=== PATIENT | female | born 1995 | race Caucasian/White ===

== ENCOUNTER 2019-09-26 06:18 | Emergency (ER) | payer SELFPAY ==
[2019-09-26 06:24] VITALS: BP 126/76; PULSE 90; RESP 16; TEMP 36.8; O2SAT 100; BMI 27.4
--- NOTE | 2019-09-26 06:28 | ED.ABDPAIN ---
HPI - Abdominal Pain <Leonardo Correia DO - Last Filed: 09/26/19 18:07> General Chief Complaint: Abdominal Pain Stated Complaint: ABDOMINAL PAIN Time Seen by Provider: 09/26/19 06:25 Source: patient and family Mode of arrival: Ambulatory Limitations: no limitations History of Present Illness HPI narrative: 24-year-old female nonsmoker with benign medical history presents with a chief complaint of sudden onset severe left lower quadrant pain that woke her from sleep almost 2 hours prior to her arrival. She admits to nausea and a few episodes of vomiting. She denies any provocation or palliation, she states it radiates to her back. She denies vaginal bleeding or discharge and states her last menstrual period was in and the August, it is not unheard of for her to go extended periods of time without a period. MD complaint: abdominal pain Onset (ago): hour(s) Pain Consistency: constant Location: LLQ Severity: moderate Quality: stabbing and aching Radiation: back Relieving factors: nothing Exacerbating factors: nothing Associated symptoms: nausea and vomiting Related Data Previous Rx's Medication Instructions Recorded norethindrone-e.estradiol-iron 1 tab PO QDAY #3 pac 05/07/17 [Loestrin Fe 1.5/30 (28-Day)] acyclovir [Zovirax] 200 mg PO Q4H #50 cap 10/13/17 cephalexin 500 mg PO TID #21 cap 10/14/17 ciprofloxacin HCl 500 mg PO BID #14 tab 09/26/19 tamsulosin [Flomax] 0.4 mg PO DAILY #5 cap 09/26/19 Allergies Allergy/AdvReac Type Severity Reaction Status Date / Time Sulfa (Sulfonamide Allergy Unknown Verified 09/26/19 06:37 Antibiotics) [SULFA (SULFONAMIDE ANTIBIOTICS)] Review of Systems <DO Mary Stokes Last Filed: 09/26/19 18:07> Constitutional Constitutional: Denies chills, Denies fatigue, Denies fever(s), Denies frequent falls, Denies lethargy and Denies weakness Eyes Eyes: Denies change in vision, Denies eye discharge, Denies irritation and Denies loss of vision ENT Ears, Nose, Mouth, and Throat: Denies change in voice, Denies dizziness, Denies neck pain, Denies sore throat and Denies throat swelling Cardiovascular Cardiovascular: Denies chest pain, Denies irregular heart rhythm, Denies lightheadedness, Denies palpitations, Denies dyspnea, Denies dyspnea on exertion and Denies orthopnea Respiratory Respiratory: Denies cough, Denies dyspnea, Denies dyspnea on exertion and Denies wheezing Gastrointestinal Gastrointestinal: Reports abdominal pain, Denies change in bowel habits, Denies diarrhea, Reports nausea and Reports vomiting Genitourinary Genitourinary: Denies hematuria, Denies flank pain, Denies urinary incontinence and Denies urinary urgency Musculoskeletal Musculoskeletal: Denies back pain, Denies muscle weakness, Denies neck pain, Denies numbness and Denies tingling Integumentary/Breasts Skin/Breast: Denies pruritus, Denies erythema, Denies rash and Denies wounds Neurologic Neurologic: Denies behavioral changes, Denies confusion, Denies dizziness, Denies frequent falls, Denies loss of vision, Denies numbness, Denies tingling and Denies weakness Psychiatric Psychiatric: Denies anxiety, Denies behavioral changes, Denies confusion, Denies depression, Denies homicidal ideation and Denies suicidal ideation Endocrine Endocrine: Denies fatigue, Denies flushing and Denies palpitations Hematologic/Lymphatic Hematologic/Lymphatic: Denies easy bruising Allergic/Immunologic Allergic/Immunologic: Denies urticaria, Denies throat swelling and Denies wheezing Patient History <Leonardo Correia DO - Last Filed: 09/26/19 18:07> Social History Smoking Status: Never smoker alcohol intake frequency: holidays/special occasions only Substance Use Type: marijuana Exam <Leonardo Correia DO - Last Filed: 09/26/19 18:07> Narrative Exam Narrative: GENERAL: [24] year old patient appears stated age. Well-nourished, well-developed patient, in moderate distress, obviously uncomfortable HEAD: Atraumatic. Normocephalic. EYES: Pupils equal round and reactive. Extraocular motions intact. No scleral icterus. No injection or drainage. ENT: Nose without bleeding, purulent drainage. Throat without erythema, tonsillar hypertrophy or exudate. Airway patent. NECK: Trachea midline. Non tender CARDIOVASCULAR: Regular rate and rhythm without murmurs, gallops, or rubs. RESPIRATORY: Clear to auscultation. Breath sounds equal bilaterally. No wheezes, rales, or rhonchi. GASTROINTESTINAL: Abdomen soft, non-tender, nondistended. EXTREMITIES: No edema or joint tenderness. BACK: Nontender without deformity or crepitance. No flank tenderness. NEURO: AOx3. SKIN: No rash or erythema of visible areas Initial Vital Signs Initial Vital Signs: Vital Signs Temperature 98.2 F 09/26/19 06:24 Pulse Rate 90 09/26/19 06:24 Respiratory Rate 16 09/26/19 06:24 Blood Pressure 126/76 09/26/19 06:24 Pulse Oximetry 100 09/26/19 06:24 <Gabriela Villafuerte, DO - Last Filed: 09/26/19 08:40> Initial Vital Signs Initial Vital Signs: Vital Signs Temperature 98.2 F 09/26/19 06:24 Pulse Rate 90 09/26/19 06:24 Respiratory Rate 16 09/26/19 06:24 Blood Pressure 126/76 09/26/19 06:24 Pulse Oximetry 100 09/26/19 06:24 Course <Leonardo Correia DO - Last Filed: 09/26/19 18:07> Course Course Narrative: patient initial evaluation and orders by myself, then signed out to Dr. Villafuerte for final disposition Orders Ordered: Discontinued Medications Hydrocodone Bitart/Acetaminophen (Vicodin Prepack) 1 bottle MISC SEEINSTR ONE Stop: 09/26/19 08:09 Last Admin: 09/26/19 08:17 Dose: 1 bottle Documented by: CARMELITA Ciprofloxacin (Cipro) 500 mg PO NOW ONE Stop: 09/26/19 08:09 Last Admin: 09/26/19 08:18 Dose: 500 mg Documented by: CARMELITA Sodium Chloride (Normal Saline 0.9%) 1,000 mls @ 150 mls/hr IV CONT TIMOTHY Last Admin: 09/26/19 06:43 Dose: Not Given Documented by: BABITA Sodium Chloride (Normal Saline 0.9%) 1,000 mls @ 1,000 mls/hr IV BOLUS ONE Stop: 09/26/19 07:36 Last Infusion: 09/26/19 08:01 Dose: 0 mls/hr Documented by: Admin: 09/26/19 06:45 Dose: 1,000 mls/hr Documented by: KWOYSKI Ketorolac Tromethamine (Toradol) 15 mg IV NOW ONE Stop: 09/26/19 06:38 Last Admin: 09/26/19 06:45 Dose: 15 mg Documented by: SHANNON Ondansetron HCl (Zofran) 4 mg IV Q4HR PRN PRN Reason: Nausea And Vomiting Last Admin: 09/26/19 06:45 Dose: 4 mg Documented by: SHANNON Vital Signs Vital signs: Vital Signs - 8 hr 09/26/19 06:24 09/26/19 06:38 09/26/19 08:23 Temperature 98.2 F Pulse Rate 90 85 75 Respiratory Rate 16 16 Blood Pressure 126/76 Blood Pressure [Right Arm] 126/76 118/58 L Pulse Oximetry 100 100 100 09/26/19 08:31 Temperature Pulse Rate 65 Respiratory Rate 16 Blood Pressure 118/58 L Blood Pressure [Right Arm] Pulse Oximetry 100 <Gabriela Villafuerte DO - Last Filed: 09/26/19 08:40> Orders Ordered: Discontinued Medications Hydrocodone Bitart/Acetaminophen (Vicodin Prepack) 1 bottle MISC SEEINSTR ONE Stop: 09/26/19 08:09 Last Admin: 09/26/19 08:17 Dose: 1 bottle Documented by: CARMELITA Ciprofloxacin (Cipro) 500 mg PO NOW ONE Stop: 09/26/19 08:09 Last Admin: 09/26/19 08:18 Dose: 500 mg Documented by: CARMELITA Sodium Chloride (Normal Saline 0.9%) 1,000 mls @ 150 mls/hr IV CONT TIMOTHY Last Admin: 09/26/19 06:43 Dose: Not Given Documented by: BABITA Sodium Chloride (Normal Saline 0.9%) 1,000 mls @ 1,000 mls/hr IV BOLUS ONE Stop: 09/26/19 07:36 Last Infusion: 09/26/19 08:01 Dose: 0 mls/hr Documented by: Admin: 09/26/19 06:45 Dose: 1,000 mls/hr Documented by: SHANNON Ketorolac Tromethamine (Toradol) 15 mg IV NOW ONE Stop: 09/26/19 06:38 Last Admin: 09/26/19 06:45 Dose: 15 mg Documented by: SHANNON Ondansetron HCl (Zofran) 4 mg IV Q4HR PRN PRN Reason: Nausea And Vomiting Last Admin: 09/26/19 06:45 Dose: 4 mg Documented by: SHANNON Vital Signs Vital signs: Vital Signs - 8 hr 09/26/19 06:24 09/26/19 06:38 09/26/19 08:23 Temperature 98.2 F Pulse Rate 90 85 75 Respiratory Rate 16 16 Blood Pressure 126/76 Blood Pressure [Right Arm] 126/76 118/58 L Pulse Oximetry 100 100 100 09/26/19 08:31 Temperature Pulse Rate 65 Respiratory Rate 16 Blood Pressure 118/58 L Blood Pressure [Right Arm] Pulse Oximetry 100 MDM - Abdominal Pain <Leonardo Correia DO - Last Filed: 09/26/19 18:07> Lab Data Result diagrams: 09/26/19 06:40 09/26/19 06:40 Labs: Lab Results 09/26/19 09/26/19 09/26/19 Range/Units 06:40 06:40 07:05 WBC 11.4 H (4.5-11.0) X10^3/uL RBC 4.52 (4.0-5.2) X10^6/uL Hgb 14.0 (12.0-16.0) g/dL Hct 40.2 (36-46) % MCV 89.0 (80-100) fL MCH 30.9 (26-34) PG MCHC 34.8 (30-36) % RDW 14.2 (11.6-14.8) % Plt Count 295 (150-400) X10^3/uL Neut % (Auto) 69.7 (50-75) % Lymph % (Auto) 22.4 L (25-40) % [place] % (Auto) 6.4 (3-14) % Eos % (Auto) 1.2 L (2-4) % Baso % (Auto) 0.3 (0-2) % Neut # (Auto) 8000 H (2664-0110) /uL Lymph # (Auto) 2600 (5943-5745) /uL [place] # (Auto) 700 (0-900) /uL Eos # (Auto) 100 (0-450) /uL Baso # (Auto) 0 (0-100) /uL Sodium 140 (137-145) mmol/L Potassium 3.7 (3.4-5.1) mmol/L Chloride 106 (98-107) mmol/L Carbon Dioxide 24 (22-32) mmol/L BUN 10 (7-17) mg/dL Creatinine 0.50 L (0.52-1.04) mg/dL Estimated GFR > 60.0 (>60) mL/min BUN/Creatinine Ratio 20.0 (6-22) Glucose 102 H (70-100) mg/dL Calcium 10.2 (8.4-10.2) mg/dL Total Bilirubin 0.4 (0.2-1.3) mg/dL AST 21 (14-36) IU/L ALT 11 (9-52) IU/L Alkaline Phosphatase 59 (38-126) U/L Total Protein 8.8 H (6.3-8.2) g/dL Albumin 4.8 (3.5-5.0) g/dL Globulin 4.0 (1.7-4.1) g/dL Albumin/Globulin Ratio 1.2 (1.0-2.8) Lipase 133 (23-300) U/L Urine RBC 30-100/hpf H (0-5/HPF) Urine WBC 10-30/hpf H (0-5/HPF) Ur Squamous Epith Cells 1-5 /hpf (0-5/HPF) Urine Bacteria Moderate (10-30) H (None) Ur Culture Indicated? Specimen cultured Point of care testing: Point of Care Testing Test Results Negative Urine Dip Bedside Urine Glucose Negative Bedside Urine Bilirubin - Negative Bedside Urine Ketone - Negative Urine Specific [place] 1.015 Bedside Urine Occult Blood +++ Bedside Urine pH 6.5 Bedside Urine Protein + 30 Bedside Urine Urobilinogen +/- 1mg Bedside Urine Nitrite - Negative Bedside Urine Leukocytes +/- 15 Esterase <Gabriela Villafuerte, DO - Last Filed: 09/26/19 08:40> Lab Data Attestation: I reviewed the patient's lab results. Labs: Lab Results 09/26/19 09/26/19 09/26/19 Range/Units 06:40 06:40 07:05 WBC 11.4 H (4.5-11.0) X10^3/uL RBC 4.52 (4.0-5.2) X10^6/uL Hgb 14.0 (12.0-16.0) g/dL Hct 40.2 (36-46) % MCV 89.0 (80-100) fL MCH 30.9 (26-34) PG MCHC 34.8 (30-36) % RDW 14.2 (11.6-14.8) % Plt Count 295 (150-400) X10^3/uL Neut % (Auto) 69.7 (50-75) % Lymph % (Auto) 22.4 L (25-40) % [place] % (Auto) 6.4 (3-14) % Eos % (Auto) 1.2 L (2-4) % Baso % (Auto) 0.3 (0-2) % Neut # (Auto) 8000 H (9682-7458) /uL Lymph # (Auto) 2600 (2154-9778) /uL [place] # (Auto) 700 (0-900) /uL Eos # (Auto) 100 (0-450) /uL Baso # (Auto) 0 (0-100) /uL Sodium 140 (137-145) mmol/L Potassium 3.7 (3.4-5.1) mmol/L Chloride 106 (98-107) mmol/L Carbon Dioxide 24 (22-32) mmol/L BUN 10 (7-17) mg/dL Creatinine 0.50 L (0.52-1.04) mg/dL Estimated GFR > 60.0 (>60) mL/min BUN/Creatinine Ratio 20.0 (6-22) Glucose 102 H (70-100) mg/dL Calcium 10.2 (8.4-10.2) mg/dL Total Bilirubin 0.4 (0.2-1.3) mg/dL AST 21 (14-36) IU/L ALT 11 (9-52) IU/L Alkaline Phosphatase 59 (38-126) U/L Total Protein 8.8 H (6.3-8.2) g/dL Albumin 4.8 (3.5-5.0) g/dL Globulin 4.0 (1.7-4.1) g/dL Albumin/Globulin Ratio 1.2 (1.0-2.8) Lipase 133 (23-300) U/L Urine RBC 30-100/hpf H (0-5/HPF) Urine WBC 10-30/hpf H (0-5/HPF) Ur Squamous Epith Cells 1-5 /hpf (0-5/HPF) Urine Bacteria Moderate (10-30) H (None) Ur Culture Indicated? Specimen cultured Point of care testing: Point of Care Testing Test Results Negative Urine Dip Bedside Urine Glucose Negative Bedside Urine Bilirubin - Negative Bedside Urine Ketone - Negative Urine Specific [place] 1.015 Bedside Urine Occult Blood +++ Bedside Urine pH 6.5 Bedside Urine Protein + 30 Bedside Urine Urobilinogen +/- 1mg Bedside Urine Nitrite - Negative Bedside Urine Leukocytes +/- 15 Esterase Imaging Data pelvic US: Radiologist's impression: [place] [address] Ultrasound Report Signed Patient: Candy Díaz [facility]#: [id number] : 1995Acct:[id number] Age/Sex: 24 / FDate of Service: 09/26/19 Loc: ED Accession Number: [id number] Procedure: US pelvic complete Ordering Provider: Leonardo Correia D.O. PROCEDURE: US PELVIC COMPLETE INDICATIONS: LLQ PAIN TECHNIQUE: Real-time scanning was performed of the pelvic organs, with image documentation. Additional endovaginal scanning was necessary due to incomplete visualization of the adnexal and endometrial structures by transabdominal scanning. COMPARISON: None. FINDINGS: Transabdominal scanning: Limited scanning through the kidneys shows no hydronephrosis. No pathologic free abdominal or pelvic fluid. Endovaginal scanning: Uterus: Uterus is normal in size at 7.4 x 3.6 x 4.5 cm. The endometrium measures 3 mm in combined thickness. Ovaries: The right ovary measures 2.5 x 1.2 x 2.3 cm. The left ovary measures 2.8 x 1.5 x 2.2 cm. The ovaries have a normal sonographic appearance. Normal appearing arterial flow is confirmed to each ovary. No adnexal masses are seen. IMPRESSION: Normal pelvic ultrasound, without an imaging explanation found for patient's presenting history of left lower quadrant pain. Dictated by: Alfredo Castellanos M.D. on 09/26/2019 at 6:36 Approved by: Alfredo Castellanos M.D. on 09/26/2019 at 6:38 MDM Narrative Medical decision making narrative: Patient signed out to myself by Dr. Correia. Patient seen by myself. Labs show wbc of 11.4, normal chemistry, protein 8.8, urine + for blod, leukocyte esterase with 30-100 rbc and 10-30 wbc and moderate bacteria. specimen was cultured. Poc preg negative and US shows no acute changes to ovaries, renal limited eval but no hydronephrosis noted. On recheck after Toradol, patient is asymptomatic. We discussed today's findings I suspect she probably has a kidney stone potentially with infection or possibly pyelonephritis. We discussed that doubt ovarian cyst is unlikely with lack changes to the ovaries and no free fluid. We discussed potentially other causes. We discussed further imaging with CT and patient and family were comfortable treating as a kidney stone at this time. We discussed watchful waiting and if patient's symptoms were worsening or changing reasons to return. Discharge Plan Departure Patient Disposition: Home Clinical Impression: Kidney stone Discharge Date/Time: 09/26/19 08:32 Instructions: DI for Kidney Stones Activity Restrictions/Additional Instructions: Follow up with primary care in the next 2-3 days for recheck if your symptoms have not completely resolved. I suspect you have a kidney stone and potentially urine infection. Take antibiotics until completely gone. Take Flomax once daily. You may take ibuprofen up to 800 mg every 8 hours as needed for pain. If you need medication for breakthrough pain, he may take prescription narcotic medication. Take pain medication as needed, this medication can make you sleepy do not drive, perform hazardous activities or make any major decisions while taking it. Return to the emergency department for fevers greater than 100.4 F, passing out, rapidly worsening pain that cannot be controlled, persistent vomiting, black or bloody stools, inability to urinate or other new or concerning symptoms. Prescriptions: New ciprofloxacin HCl 500 mg tablet 500 mg PO BID Qty: 14 RF: 0 tamsulosin [Flomax] 0.4 mg capsule 0.4 mg PO DAILY Qty: 5 RF: 0 No Action norethindrone-e.estradiol-iron [Loestrin Fe 1.5/30 (28-Day)] 1.5 MG/30 MCG tablet 1 tab PO QDAY Qty: 3 RF: 4 acyclovir [Zovirax] 200 MG capsule 200 mg PO Q4H Qty: 50 RF: 0 cephalexin 500 MG capsule 500 mg PO TID Qty: 21 RF: 0
[2019-09-26 06:38] VITALS: BP 126/76; PULSE 85; RESP 16; O2SAT 100
--- NOTE | 2019-09-26 06:38 | DI.US.S_ITS ---
PROCEDURE: US PELVIC COMPLETE INDICATIONS: LLQ PAIN TECHNIQUE: Real-time scanning was performed of the pelvic organs, with image documentation. Additional endovaginal scanning was necessary due to incomplete visualization of the adnexal and endometrial structures by transabdominal scanning. COMPARISON: None. FINDINGS: Transabdominal scanning: Limited scanning through the kidneys shows no hydronephrosis. No pathologic free abdominal or pelvic fluid. Endovaginal scanning: Uterus: Uterus is normal in size at 7.4 x 3.6 x 4.5 cm. The endometrium measures 3 mm in combined thickness. Ovaries: The right ovary measures 2.5 x 1.2 x 2.3 cm. The left ovary measures 2.8 x 1.5 x 2.2 cm. The ovaries have a normal sonographic appearance. Normal appearing arterial flow is confirmed to each ovary. No adnexal masses are seen. IMPRESSION: Normal pelvic ultrasound, without an imaging explanation found for patient's presenting history of left lower quadrant pain. Dictated by: Alfredo Castellanos M.D. on 09/26/2019 at 6:36 Approved by: Alfredo Castellanos M.D. on 09/26/2019 at 6:38
[2019-09-26] MEDS: KETOROLAC 60 MG/2 ML VIAL 15 MG IV (06:45)
[2019-09-26] MEDS: ONDANSETRON 4 MG/2 ML INJ IV (06:45)
[2019-09-26] MEDS: SODIUM CHLORIDE 0.9% 1,000 ML 1000 ML IV (06:45)
[2019-09-26 06:58] LABS: Add Manual Diff / Slide Review NO; Basophils Absolute Auto 0 /uL (0-100); Basophils Percent Auto 0.3 % (0-2); Eosinophils Absolute Auto 100 /uL (0-450); Eosinophils Percent Auto 1.2 % (2-4); Hematocrit 40.2 % (36-46); Lymphocytes Absolute Auto 2600 /uL (1100-4500); Lymphocytes Percent Auto 22.4 % (25-40); Mean Corpuscular HGB Conc 34.8 % (30-36); Mean Corpuscular Hemoglobin 30.9 PG (26-34); Monocytes Absolute Auto 700 /uL (0-900); Monocytes Percent Auto 6.4 % (3-14); Neutrophils Absolute Auto 8000 /uL (1500-7000); Neutrophils Percent Auto 69.7 % (50-75); Platelet Count 295 X10^3/uL (150-400); Red Blood Cell Count 4.52 X10^6/uL (4.0-5.2); Red Cell Distribution Width 14.2 % (11.6-14.8); White Blood Cell Count 11.4 X10^3/uL (4.5-11.0)
[2019-09-26 07:02] LABS: Alanine Aminotransferase 11 IU/L (9-52); Albumin 4.8 g/dL (3.5-5.0); Albumin Globulin Ratio 1.2 (1.0-2.8); Alkaline Phosphatase 59 U/L (38-126); Aspartate Aminotransferase 21 IU/L (14-36); Bilirubin Total 0.4 mg/dL (0.2-1.3); Blood Urea Nitrogen 10 mg/dL (7-17); Calcium 10.2 mg/dL (8.4-10.2); Carbon Dioxide 24 mmol/L (22-32); Chloride 106 mmol/L (98-107); Estimated Glomerular Filt Rate > 60.0 mL/min (>60); Glucose 102 mg/dL (70-100); HEMOLYSIS 20 (0-50); Lipase 133 U/L (23-300); Potassium 3.7 mmol/L (3.4-5.1); Sodium 140 mmol/L (137-145); Total Protein 8.8 g/dL (6.3-8.2)
[2019-09-26 07:38] LABS: RBC Urine 30-100/HPF (0-5/HPF); Squamous Epithelial Cell Urine 1-5 /HPF (0-5/HPF); WBC Urine 10-30/HPF (0-5/HPF)
[2019-09-26 07:39] LABS: Bacteria Urine Moderate (10-30); Culture Indicated Urine Specimen Cultured
[2019-09-26] MEDS: HYDROCODONE/ACET 5/325 PREPACK 1 BOTTLE MISC (08:17)
[2019-09-26] MEDS: CIPROFLOXACIN 500 MG TABLET PO (08:18)
[2019-09-26 08:23] VITALS: BP 118/58; PULSE 75; O2SAT 100
[2019-09-26 08:31] VITALS: BP 118/58; PULSE 65; RESP 16; O2SAT 100
== END 2019-09-26 08:32 | disposition home or self-care (01) ==
PROVIDERS: Emergency Medicine; Emergency Provider Emergency Medicine
DX: N20.0 Calculus of kidney (principal); R79.89 Other specified abnormal findings of blood chemistry; R11.2 Nausea with vomiting, unspecified
CPT/HCPCS: 36415; 76830; 76856; 80053; 81003; 81015; 81025; 83690; 85025; 87086; 96361; 96374; 96375; 99283; 99284; J1885; J2405

== ENCOUNTER 2020-12-12 15:29 | Emergency (ER) | payer OTHER, MEDICAID, SELFPAY ==
[2020-12-12] VITALS (8 sets, daily range): BP systolic 110–165; BP diastolic 56–89; PULSE 71–102; RESP 16–18; TEMP 37.5; O2SAT 92–100; BMI 32.0
[2020-12-12 16:16] LABS: COVID19 -Nasal RAPID Negative (Negative)
--- NOTE | 2020-12-12 18:23 | ED_ITS ---
HPI - Back Pain/Injury General Chief Complaint: Back Pain/Injury Stated Complaint: states migraine, back pain Time Seen by Provider: 12/12/20 18:03 Source: patient Mode of arrival: Ambulatory Limitations: no limitations History of Present Illness HPI Narrative: Patient is otherwise healthy 25-year-old female here for evaluation of a, neck pain and fever. Patient does have a of migraines. She states that yesterday she started having 1 of her typical migraine. She does not take medications for her headaches. She does state she gets them several times a month. Since the onset of the headache she has developed neck pain and also fevers. No nausea vomiting. No rashes. No visual changes. Has not tried anything for symptoms prior to arrival. Related Data Previous Rx's Medication Instructions Recorded norethindrone-e.estradiol-iron 1 tab PO QDAY #3 pac 05/07/17 [Loestrin Fe 1.5/30 (28-Day)] acyclovir [Zovirax] 200 mg PO Q4H #50 cap 10/13/17 cephalexin 500 mg PO TID #21 cap 10/14/17 ciprofloxacin HCl 500 mg PO BID #14 tab 09/26/19 tamsulosin [Flomax] 0.4 mg PO DAILY #5 cap 09/26/19 acyclovir 800 mg PO TID 10 Days #30 tab 12/12/20 Allergies Allergy/AdvReac Type Severity Reaction Status Date / Time Sulfa (Sulfonamide Allergy Unknown Verified 09/26/19 06:37 Antibiotics) [SULFA (SULFONAMIDE ANTIBIOTICS)] Review of Systems Constitutional Constitutional: Denies body ache(s), Reports fatigue and Reports fever(s) Eyes Eyes: Denies blurry vision and Denies change in vision ENT Ears, Nose, Mouth, and Throat: Denies vertigo, Reports neck pain, Denies disequilibrium, Denies sinus pressure and Denies sore throat Cardiovascular Cardiovascular: Denies chest pain and Denies dyspnea Respiratory Respiratory: Denies cough and Denies dyspnea Gastrointestinal Gastrointestinal: Denies abdominal pain, Denies change in bowel habits, Reports nausea and Denies vomiting Genitourinary Genitourinary: Denies dysuria Genitourinary: Denies dysuria Musculoskeletal Musculoskeletal: Denies back pain, Reports neck pain and Denies tingling Integumentary/Breasts Skin/Breast: Denies lesions and Denies rash Neurologic Neurologic: Denies behavioral changes, Denies confusion, Denies vertigo, Denies tingling and Denies disequilibrium Psychiatric Psychiatric: Denies behavioral changes and Denies confusion Endocrine Endocrine: Reports fatigue Hematologic/Lymphatic On Anticoagulants: No Allergic/Immunologic Allergic/Immunologic: Denies urticaria Patient History Medical History Cold sore Social History Smoking Status: Never smoker Smoking Status: Never smoker alcohol intake frequency: 0-2 drinks per day Substance Use Type: marijuana Exam Initial Vital Signs Initial Vital Signs: Vital Signs Temperature 99.5 F 12/12/20 15:40 Pulse Rate 99 H 12/12/20 15:40 Respiratory Rate 18 12/12/20 15:40 Blood Pressure 165/85 H 12/12/20 15:40 Pulse Oximetry 99 12/12/20 15:40 Const General: cooperative, comfortable, well developed and well groomed Limitations: mental status not altered HENMN Head: normal to inspection and normocephalic Nose: external nose normal Face and sinus: normal facial exam Mouth: oral mucosae normal Eyes General: appearance normal, both eyes and all related structures Neck Lymphatic: No lymphadenopathy Resp Effort & Inspection: normal respiratory effort Auscultation: clear to auscultation bilaterally Cardio Rate: regular rate Rhythm: regular rhythm GI Inspection: non-distended Palpation: soft and No tender Back/Spine/Pelvis Cervical Spine: cervical muscular tenderness Thoracic/Lumbar Spine: No thoracic spinal tenderness and No lumbar spinal tenderness Skin Lesions: no lesions Rashes: no rashes Neuro General: patient alert, patient awake and patient oriented x3 Cognition: normal cognition Speech: speech normal Gait: normal gait Sensory Exam: no sensory deficits noted Extrem General: normal to inspection and capillary refill normal Psych Appearance: grossly normal and well kempt Procedures Lumbar Puncture Time Out Performed: Yes Patient Position: upright Skin Prep: Povidone-Iodine 1% Local Anesthetic: lidocaine 1% Amount of anesthesia used (mL): 5 Spinal Needle Gauge: 22G Interspace Used: L3-L4 Fluid Initially Obtained: clear Complications: none Scores GCS [place] coma scale eye opening: Spontaneous Sd coma scale verbal response: Orientated Green[place] coma scale motor response: Obey commands Green[place] coma scale total score: 15 Course Orders Ordered: ED Orders 12/12/20 15:45 COVID19 Stat 12/12/20 18:45 Basic Metabolic Panel Stat Complete Blood Count AUTO DIFF Stat Influenza A & B (PCR) Stat Test Serum,Qual Stat 12/12/20 20:15 CSF culture Stat Cell Count w Diff CSF Stat Glucose CSF Stat Meningitis Panel (Film Array) Stat Total Protein CSF Stat Discontinued Medications Acetaminophen (Acetaminophen 325 Mg Tablet) 975 mg PO NOW ONE Stop: 12/12/20 18:25 Last Admin: 12/12/20 18:57 Dose: 975 mg Documented by: VALENTINA Acyclovir (Acyclovir 200 Mg Capsule) 800 mg PO NOW ONE Stop: 12/12/20 22:09 Diphenhydramine HCl (Diphenhydramine 50 Mg/Ml Vial) 25 mg IV NOW ONE Stop: 12/12/20 18:25 Last Admin: 12/12/20 18:57 Dose: 25 mg Documented by: VALENTINA Sodium Chloride (Normal Saline 0.9%) 1,000 mls @ 1,000 mls/hr IV BOLUS ONE Stop: 12/12/20 19:23 Last Admin: 12/12/20 18:57 Dose: 1,000 mls/hr Documented by: VALENTINA Metoclopramide HCl (Metoclopramide 10 Mg/2 Ml Inj) 10 mg IV NOW ONE Stop: 12/12/20 18:25 Last Admin: 12/12/20 18:58 Dose: 10 mg Documented by: VALENTINA Vital Signs Vital signs: Vital Signs - 8 hr 12/12/20 15:40 12/12/20 16:02 12/12/20 18:53 Temperature 99.5 F Pulse Rate 99 H 102 H 78 Respiratory Rate 18 Blood Pressure 165/85 H 144/89 H Pulse Oximetry 99 98 92 12/12/20 18:54 12/12/20 19:00 12/12/20 19:30 Temperature Pulse Rate 77 84 71 Respiratory Rate Blood Pressure 124/66 124/75 114/63 Pulse Oximetry 100 100 100 12/12/20 20:00 Temperature Pulse Rate 81 Respiratory Rate Blood Pressure 110/75 Pulse Oximetry 97 MDM - Back Pain/Injury Lab Data Attestation: I reviewed the patient's lab results. Result diagrams: 12/12/20 18:45 12/12/20 18:45 Labs: Lab Results 12/12/20 12/12/20 12/12/20 Range/Units 15:45 18:45 18:45 WBC 12.6 H (4.5-11.0) X10^3/uL RBC 4.49 (4.0-5.2) X10^6/uL Hgb 13.4 (12.0-16.0) g/dL Hct 40.2 (36-46) % MCV 89.7 (80-100) fL MCH 29.9 (26-34) PG MCHC 33.4 (30-36) % RDW 13.5 (11.6-14.8) % Plt Count 317 (150-400) X10^3/uL Neut % (Auto) 82.1 H (50-75) % Lymph % (Auto) 11.1 L (25-40) % Kidder % (Auto) 6.2 (3-14) % Eos % (Auto) 0.1 L (2-4) % Baso % (Auto) 0.5 (0-2) % Neut # (Auto) 95068 H (0411-7736) /uL Lymph # (Auto) 1400 (4797-1008) /uL Kidder # (Auto) 800 (0-900) /uL Eos # (Auto) 0 (0-450) /uL Baso # (Auto) 100 (0-100) /uL Sodium 136 L (137-145) mmol/L Potassium 4.2 (3.4-5.1) mmol/L Chloride 103 (98-107) mmol/L Carbon Dioxide 25 (22-32) mmol/L BUN 9 (7-17) mg/dL Creatinine 0.54 (0.52-1.04) mg/dL Estimated GFR > 60.0 (>60) mL/min BUN/Creatinine Ratio 16.7 (6-22) Glucose 110 H (70-100) mg/dL Calcium 10.1 (8.4-10.2) mg/dL Serum , Qual (Negative) CSF Tube Number CSF Volume CSF Appearance (Clear) CSF Color (Colorless) CSF WBC (0-5) MONO/uL CSF RBC RBC /uL CSF Mononuclear WBCs % CSF Polynuclear WBCs % CSF Glucose (40-70) mg/dL CSF Total Protein (12-60) mg/dL CSF C.neoform/gat PCR (Not Detect) CSF CMV DNA (PCR) (Not Detect) CSF Enterovirus (PCR) (Not Detect) CSF E. coli (PCR) (Not Detect) CSF H. influenzae (PCR) (Not Detect) CSF HSV I (PCR) (Not Detect) CSF HSV II (PCR) (Not Detect) CSF HHV 6 (PCR) (Not Detect) CSF L.monocytogenes PCR (Not Detect) CSF N. meningitidis PCR (Not Detect) CSF Parechovirus (PCR) (Not Detect) CSF S. agalactiae (PCR) (Not Detect) CSF S. pneumoniae (PCR) (Not Detect) CSF VZV (PCR) (Not Detecte) SARS-CoV-2 (PCR) Negative (Negative) Influenza A (RT-PCR) (NEGATIVE) Influenza B (RT-PCR) (NEGATIVE) 12/12/20 12/12/20 12/12/20 Range/Units 18:45 18:45 20:15 WBC (4.5-11.0) X10^3/uL RBC (4.0-5.2) X10^6/uL Hgb (12.0-16.0) g/dL Hct (36-46) % MCV (80-100) fL MCH (26-34) PG MCHC (30-36) % RDW (11.6-14.8) % Plt Count (150-400) X10^3/uL Neut % (Auto) (50-75) % Lymph % (Auto) (25-40) % Kidder % (Auto) (3-14) % Eos % (Auto) (2-4) % Baso % (Auto) (0-2) % Neut # (Auto) (1418-3224) /uL Lymph # (Auto) (7318-1073) /uL Kidder # (Auto) (0-900) /uL Eos # (Auto) (0-450) /uL Baso # (Auto) (0-100) /uL Sodium (137-145) mmol/L Potassium (3.4-5.1) mmol/L Chloride (98-107) mmol/L Carbon Dioxide (22-32) mmol/L BUN (7-17) mg/dL Creatinine (0.52-1.04) mg/dL Estimated GFR (>60) mL/min BUN/Creatinine Ratio (6-22) Glucose (70-100) mg/dL Calcium (8.4-10.2) mg/dL Serum , Qual Negative (Negative) CSF Tube Number 4 CSF Volume 1.0 ml CSF Appearance Clear (Clear) CSF Color Colorless (Colorless) CSF WBC 160 H (0-5) MONO/uL CSF RBC 2 RBC /uL CSF Mononuclear WBCs 94 % CSF Polynuclear WBCs 6 % CSF Glucose 46 (40-70) mg/dL CSF Total Protein 217 H* (12-60) mg/dL CSF C.neoform/gat PCR (Not Detect) CSF CMV DNA (PCR) (Not Detect) CSF Enterovirus (PCR) (Not Detect) CSF E. coli (PCR) (Not Detect) CSF H. influenzae (PCR) (Not Detect) CSF HSV I (PCR) (Not Detect) CSF HSV II (PCR) (Not Detect) CSF HHV 6 (PCR) (Not Detect) CSF L.monocytogenes PCR (Not Detect) CSF N. meningitidis PCR (Not Detect) CSF Parechovirus (PCR) (Not Detect) CSF S. agalactiae (PCR) (Not Detect) CSF S. pneumoniae (PCR) (Not Detect) CSF VZV (PCR) (Not Detecte) SARS-CoV-2 (PCR) (Negative) Influenza A (RT-PCR) Flu a negative (NEGATIVE) Influenza B (RT-PCR) Flu b negative (NEGATIVE) 12/12/20 Range/Units 20:15 WBC (4.5-11.0) X10^3/uL RBC (4.0-5.2) X10^6/uL Hgb (12.0-16.0) g/dL Hct (36-46) % MCV (80-100) fL MCH (26-34) PG MCHC (30-36) % RDW (11.6-14.8) % Plt Count (150-400) X10^3/uL Neut % (Auto) (50-75) % Lymph % (Auto) (25-40) % Kidder % (Auto) (3-14) % Eos % (Auto) (2-4) % Baso % (Auto) (0-2) % Neut # (Auto) (4151-0891) /uL Lymph # (Auto) (2667-3403) /uL Kidder # (Auto) (0-900) /uL Eos # (Auto) (0-450) /uL Baso # (Auto) (0-100) /uL Sodium (137-145) mmol/L Potassium (3.4-5.1) mmol/L Chloride (98-107) mmol/L Carbon Dioxide (22-32) mmol/L BUN (7-17) mg/dL Creatinine (0.52-1.04) mg/dL Estimated GFR (>60) mL/min BUN/Creatinine Ratio (6-22) Glucose (70-100) mg/dL Calcium (8.4-10.2) mg/dL Serum , Qual (Negative) CSF Tube Number CSF Volume CSF Appearance (Clear) CSF Color (Colorless) CSF WBC (0-5) MONO/uL CSF RBC RBC /uL CSF Mononuclear WBCs % CSF Polynuclear WBCs % CSF Glucose (40-70) mg/dL CSF Total Protein (12-60) mg/dL CSF C.neoform/gat PCR Not detected (Not Detect) CSF CMV DNA (PCR) Not detected (Not Detect) CSF Enterovirus (PCR) Not detected (Not Detect) CSF E. coli (PCR) Not detected (Not Detect) CSF H. influenzae (PCR) Not detected (Not Detect) CSF HSV I (PCR) Not detected (Not Detect) CSF HSV II (PCR) Detected H (Not Detect) CSF HHV 6 (PCR) Not detected (Not Detect) CSF L.monocytogenes PCR Not detected (Not Detect) CSF N. meningitidis PCR Not detected (Not Detect) CSF Parechovirus (PCR) Not detected (Not Detect) CSF S. agalactiae (PCR) Not detected (Not Detect) CSF S. pneumoniae (PCR) Not detected (Not Detect) CSF VZV (PCR) Not detected (Not Detecte) SARS-CoV-2 (PCR) (Negative) Influenza A (RT-PCR) (NEGATIVE) Influenza B (RT-PCR) (NEGATIVE) [facility] Narrative Medical decision making narrative: Patient reports complete resolution of her headache after medications administered here in the ER. She did have a low- grade fever. Did have leukocytosis. Head neck pain with difficulty flexing and extending the neck. Lumbar puncture was performed without issue which did result as a positive HSV. Patient has had cold sores in the past. Given the nontoxic nature the patient, resolution of symptoms, ability to tolerate oral intake, in the overall appearance of the patient feel that outpatient treatment for her aseptic meningitis is appropriate. She was given a dose of acyclovir here in the ER. She was given a prescription that was transmitted to the pharmacy of her choice. Was given return precautions and follow-up instructions. She expressed understanding and agreement. 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 You were given a dose of acyclovir here in the emergency department. A prescription was electronically transmitted to [facility] in [place]. Please pick it up tomorrow start taking it as directed. Be sure to increase your fluid intake. You can take Tylenol and/or ibuprofen for any headaches or body aches. I recommend that you can take 360 help establish a primary provider here in the area. That number is for the health information resource consultant here in the hospital. Return to the emergency department for any new or worsening symptoms Prescriptions: New acyclovir 800 mg tablet 800 mg PO TID 10 Days Qty: 30 RF: 0 No Action norethindrone-e.estradiol-iron [Loestrin Fe 1.5/30 (28-Day)] 1.5 MG/30 MCG tablet 1 tab PO QDAY Qty: 3 RF: 4 acyclovir [Zovirax] 200 MG capsule 200 mg PO Q4H Qty: 50 RF: 0 cephalexin 500 MG capsule 500 mg PO TID Qty: 21 RF: 0 ciprofloxacin HCl 500 mg tablet 500 mg PO BID Qty: 14 RF: 0 tamsulosin [Flomax] 0.4 mg capsule 0.4 mg PO DAILY Qty: 5 RF: 0
[2020-12-12] MEDS: SODIUM CHLORIDE 0.9% 1,000 ML 1000 ML IV (18:57)
[2020-12-12] MEDS: diphenhydrAMINE 50 MG/ML VIAL 25 MG IV (18:57)
[2020-12-12] MEDS: ACETAMINOPHEN 325 MG TABLET 975 MG PO (18:57)
[2020-12-12] MEDS: METOCLOPRAMIDE 10 MG/2 ML INJ IV (18:58)
[2020-12-12 19:07] LABS: Add Manual Diff / Slide Review NO; Basophils Absolute Auto 100 /uL (0-100); Basophils Percent Auto 0.5 % (0-2); Eosinophils Absolute Auto 0 /uL (0-450); Eosinophils Percent Auto 0.1 % (2-4); Hematocrit 40.2 % (36-46); Hemoglobin 13.4 g/dL (12.0-16.0); Lymphocytes Absolute Auto 1400 /uL (1100-4500); Lymphocytes Percent Auto 11.1 % (25-40); Mean Corpuscular HGB Conc 33.4 % (30-36); Mean Corpuscular Hemoglobin 29.9 PG (26-34); Mean Corpuscular Volume 89.7 fL (80-100); Monocytes Absolute Auto 800 /uL (0-900); Monocytes Percent Auto 6.2 % (3-14); Neutrophils Absolute Auto 10300 /uL (1500-7000); Neutrophils Percent Auto 82.1 % (50-75); Platelet Count 317 X10^3/uL (150-400); Red Blood Cell Count 4.49 X10^6/uL (4.0-5.2); Red Cell Distribution Width 13.5 % (11.6-14.8); White Blood Cell Count 12.6 X10^3/uL (4.5-11.0)
[2020-12-12 19:14] LABS: BUN Creatinine Ratio 16.7 (6-22); Blood Urea Nitrogen 9 mg/dL (7-17); Calcium 10.1 mg/dL (8.4-10.2); Carbon Dioxide 25 mmol/L (22-32); Chloride 103 mmol/L (98-107); Estimated Glomerular Filt Rate > 60.0 mL/min (>60); Glucose 110 mg/dL (70-100); HEMOLYSIS < 15 (0-50); Potassium 4.2 mmol/L (3.4-5.1); Sodium 136 mmol/L (137-145)
[2020-12-12 19:18] LABS: Pregnancy Test Serum,Qual Negative (Negative)
[2020-12-12 19:37] LABS: Influenza A - CEPHEID Flu A NEGATIVE (NEGATIVE); Influenza B - CEPHEID Flu B NEGATIVE (NEGATIVE)
--- NOTE | 2020-12-12 20:21 | PC.NURSE ---
Patient tolerated LP procedures with distress;
[2020-12-12 20:40] LABS: Glucose CSF 46 mg/dL (40-70)
[2020-12-12 20:50] LABS: Total Protein CSF 217 mg/dL (12-60)
[2020-12-12 21:10] LABS: Appearance CSF Clear (Clear); CSF Tube Number 4; CSF Tube Volume 1.0 mL; Color CSF Colorless (Colorless)
[2020-12-12 21:12] LABS: Red Blood Cell CSF 2 RBC /uL; White Blood Cell CSF 160 MONO/uL (0-5)
[2020-12-12 21:33] LABS: Mononuclear WBC CSF 94 %; Polynuclear WBC CSF 6 %
[2020-12-12 21:43] LABS: Cryptococcus neoformans/gattii Not Detected (Not Detect); Enterovirus Not Detected (Not Detect); Escherichia coli K1 Not Detected (Not Detect); Haemophilus influenzae Not Detected (Not Detect); Herpes simplex virus 1 Not Detected (Not Detect); Human herpesvirus 6 Not Detected (Not Detect); Human parechovirus Not Detected (Not Detect); Listeria monocytogenes Not Detected (Not Detect); Neisseria meningitidis Not Detected (Not Detect); Streptococcus agalactiae Not Detected (Not Detect); Streptococcus pneumoniae Not Detected (Not Detect); Varicella Zoster Virus Not Detected (Not Detecte)
[2020-12-12 21:44] LABS: Herpes simplex virus 2 Detected (Not Detect)
[2020-12-12] MEDS: ACYCLOVIR 200 MG CAPSULE 800 MG PO (22:16)
== END 2020-12-12 22:33 | disposition home or self-care (01) ==
PROVIDERS: Emergency Medicine; Emergency Provider Emergency Medicine
DX: B00.3 Herpesviral meningitis (principal); D72.829 Elevated white blood cell count, unspecified; Z20.822 Contact with and (suspected) exposure to COVID-19
CPT/HCPCS: 36415; 62270; 80048; 82945; 84157; 84703; 85025; 87070; 87205; 87502; 87635; 87798; 89051; 96361; 96374; 96375; 99281; 99284; C9803; J1200; J2765

== ENCOUNTER → 2021-03-15 09:01 | Outpatient (CLI) | payer OTHER, SELFPAY ==
[2021-03-15 09:16] LABS: Specimen Label KIT TEST
[2021-03-15 09:50] LABS: Add Manual Diff / Slide Review NO; Basophils Absolute Auto 0 /uL (0-100); Basophils Percent Auto 0.3 % (0-2); Eosinophils Absolute Auto 100 /uL (0-450); Hematocrit 38.4 % (36-46); Hemoglobin 13.2 g/dL (12.0-16.0); Lymphocytes Absolute Auto 1600 /uL (1100-4500); Mean Corpuscular HGB Conc 34.3 % (30-36); Mean Corpuscular Hemoglobin 30.4 PG (26-34); Mean Corpuscular Volume 88.5 fL (80-100); Monocytes Absolute Auto 600 /uL (0-900); Monocytes Percent Auto 6.3 % (3-14); Neutrophils Absolute Auto 7100 /uL (1500-7000); Neutrophils Percent Auto 75.4 % (50-75); Platelet Count 319 X10^3/uL (150-400); Red Blood Cell Count 4.34 X10^6/uL (4.0-5.2); Red Cell Distribution Width 14.1 % (11.6-14.8); White Blood Cell Count 9.4 X10^3/uL (4.5-11.0)
[2021-03-15 10:57] LABS: Hepatitis B Surface Antigen NEGATIVE s/c (NEGATIVE); Rubella Antibody IgG 26.8 IU/mL (>15)
[2021-03-15 11:13] LABS: HIV 1 & 2 Ab/Ag 4th Gen Combo NEGATIVE (NEGATIVE); Hep C Virus Ab w/Reflex Quant NEGATIVE s/c (NEGATIVE)
[2021-03-16 06:59] LABS: RPR Screen Non Reactive (Non Reactive)
[2021-03-16 08:10] LABS: Varicella IgG Antibody 521 index (Immune >165)
== END ==
PROVIDERS: Referring Provider Obstetrics & Gynecology; Visit Provider Obstetrics & Gynecology
DX: Z34.81 Encounter for supervision of other normal pregnancy, first trimester (principal); Z36.0 Encounter for antenatal screening for chromosomal anomalies; Z3A.12 12 weeks gestation of pregnancy
CPT/HCPCS: 80055; 86787; 86803; 86850; 86900; 86901; 87389

== ENCOUNTER → 2021-04-17 10:58 | Outpatient (CLI) | payer OTHER, SELFPAY ==
[2021-04-17 12:52] LABS: Appearance Urine UA CLEAR; Bilirubin Urine UA NEGATIVE (NEGATIVE); Color Urine UA YELLOW; Glucose Urine UA NEGATIVE (Negative); Ketones Urine UA NEGATIVE (NEGATIVE); Leukocyte Esterase Urine UA NEGATIVE (NEGATIVE); Nitrite Urine UA NEGATIVE (Negative); Occult Blood Urine UA TRACE-LYSED (Negative); Protein Urine UA NEGATIVE (Negative); Specific Gravity Urine UA <=1.005 (1.000-1.035); Urobilinogen Urine UA 0.2 E.U./dL (0.2)
[2021-04-23 10:44] LABS: Sequential Screen 2nd Trimeste SEE SEPARATE REPORTS
== END ==
PROVIDERS: Referring Provider Obstetrics & Gynecology; Visit Provider Obstetrics & Gynecology
DX: Z34.02 Encounter for supervision of normal first pregnancy, second trimester (principal); Z36.0 Encounter for antenatal screening for chromosomal anomalies; Z3A.17 17 weeks gestation of pregnancy
CPT/HCPCS: 36415; 81003; 82105; 82677; 84163; 84702; 86336; 87086

== ENCOUNTER → 2021-05-04 07:32 | Outpatient (CLI) | payer OTHER, SELFPAY ==
--- NOTE | 2021-05-04 07:32 | DI.US.S_ITS ---
PROCEDURE: US OB >= 14 WEEKS FETUS INDICATIONS: ANATOMY OUTSIDE/PRIOR DATING DATA: Last menstrual period (LMP): Unknown . LMP-based estimated date of delivery (EPHRAIM): Unknown . First dating scan (date and location): 02/13/2021,[facility]. Estimated date of delivery (EPHRAIM) from first dating scan: 09/20/2021 . TECHNIQUE: Real-time scanning was performed of the fetus, with image documentation and biometric measurements. COMPARISON: None. FINDINGS: General: A single living intrauterine gestation is present. Presentation: Cephalic. Placenta: Placental position is anterior , without previa. Amniotic fluid index: 15.8 cm, normal range is 5-24 cm. heart rate: 144 beats per minute. Maternal cervical canal: 4.5 cm long. Normal lower limit is 2.5 cm. biometrics: Biparietal diameter: 4.7 cm, 20 weeks 2 days Head circumference: 12.8 cm, 20 weeks 2 days Abdominal circumference: 15.7 cm, 20 weeks 6 days Femur length: 3.0 cm, 19 weeks 2 days Estimated gestational age from initial scan: not applicable. Composite gestational age from present scan: 20 weeks 1 day Estimated weight and percentile: 335 g, 45th percentile Measurement variability for biometric dating: +/- 7 days from 14 weeks to 15 weeks 6 days gestation, +/- 10 days from 16 weeks to 21 weeks 6 days gestation, +/- 2 weeks from 22 weeks to 27 weeks 6 days gestation, +/- 3 weeks for 28 weeks gestation or later. weight reference: 4500 g or EFW >90/95% is considered macrosomia or large for gestational age. EFW <10% is small for gestational age. EFW 5% or less is considered intra-uterine growth restriction. Anatomic survey: Neuro: Ventricles are non-dilated at less than 10 mm. Cisterna magna is normal at 3-11 mm. Cerebellum is normal in size and morphology. Nuchal skin fold: Normal at less than 6 mm between 14-21 weeks gestational age. Face: Nose and lips, facial profile are normal. Spine: No evidence for spina bifida. Heart: 4-chambered heart is present, with normal ventricular outflow tracts. Diaphragm: Diaphragm is intact. Stomach: Left-sided stomach is present. Kidneys: No hydronephrosis. Normal is less than 5 mm in 2nd trimester, less than 7 mm in 3rd trimester. Cord: 3-vessel cord has orthotopic insertion. Bladder: Normal in size. Extremities: All 4 extremities identified. IMPRESSION: 1. Living 2nd trimester intrauterine measuring 20 weeks 1 day. Ultrasound age is the same as clinical age. 2. Normal anatomy study. Dictated by: Rodger Saucedo M.D. on 05/04/2021 at 10:13 Approved by: Rodger Saucedo M.D. on 05/04/2021 at 10:22
== END ==
PROVIDERS: Referring Provider Obstetrics & Gynecology; Visit Provider Obstetrics & Gynecology
DX: Z34.82 Encounter for supervision of other normal pregnancy, second trimester (principal); Z3A.20 20 weeks gestation of pregnancy
CPT/HCPCS: 76811

== ENCOUNTER → 2021-06-19 08:29 | Outpatient (CLI) | payer OTHER, MEDICAID, SELFPAY ==
[2021-06-19 09:59] LABS: Hemoglobin 11.3 g/dL (12.0-16.0)
[2021-06-19 11:41] LABS: GTT (PREG) 1 Hour PP 50gm Dose 94 mg/dL (76-139)
== END ==
PROVIDERS: Referring Provider Obstetrics & Gynecology; Visit Provider Obstetrics & Gynecology
DX: Z34.82 Encounter for supervision of other normal pregnancy, second trimester (principal); Z3A.26 26 weeks gestation of pregnancy
CPT/HCPCS: 36415; 82950; 85014; 85018

== ENCOUNTER 2021-08-14 11:06 | Outpatient (CLI) | payer OTHER, MEDICAID, SELFPAY ==
[2021-08-14 11:12] VITALS: BP 113/74; PULSE 93; RESP 14; TEMP 36.7; O2SAT 99
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
[2021-08-14] MEDS: SODIUM CHLORIDE 0.9% 1,000 ML 150 ML IV (11:41)
[2021-08-14 11:46] LABS: Add Manual Diff / Slide Review NO; Basophils Absolute Auto 0 /uL (0-100); Basophils Percent Auto 0.3 % (0-2); Eosinophils Absolute Auto 0 /uL (0-450); Eosinophils Percent Auto 0.3 % (2-4); Hematocrit 32.5 % (36-46); Hemoglobin 10.5 g/dL (12.0-16.0); Lymphocytes Absolute Auto 1700 /uL (1100-4500); Lymphocytes Percent Auto 14.8 % (25-40); Mean Corpuscular HGB Conc 32.2 % (30-36); Mean Corpuscular Hemoglobin 26.3 PG (26-34); Mean Corpuscular Volume 81.8 fL (80-100); Monocytes Absolute Auto 800 /uL (0-900); Monocytes Percent Auto 7.4 % (3-14); Neutrophils Absolute Auto 8800 /uL (1500-7000); Neutrophils Percent Auto 77.2 % (50-75); Platelet Count 352 X10^3/uL (150-400); Red Blood Cell Count 3.97 X10^6/uL (4.0-5.2); Red Cell Distribution Width 13.7 % (11.6-14.8); White Blood Cell Count 11.4 X10^3/uL (4.5-11.0)
[2021-08-14 11:58] LABS: Alanine Aminotransferase 17 IU/L (<35); Albumin 4.1 g/dL (3.5-5.0); Albumin Globulin Ratio 1.2 (1.0-2.8); Alkaline Phosphatase 163 U/L (38-126); Aspartate Aminotransferase 28 IU/L (14-36); BUN Creatinine Ratio 14.9 (6-22); Bilirubin Total 0.8 mg/dL (0.2-1.3); Blood Urea Nitrogen 7 mg/dL (7-17); Calcium 10.2 mg/dL (8.4-10.2); Carbon Dioxide 23 mmol/L (22-32); Chloride 104 mmol/L (98-107); Creatine Kinase 32 U/L (30-135); Estimated Glomerular Filt Rate > 60.0 mL/min (>60); Globulin 3.4 g/dL (1.7-4.1); Glucose 110 mg/dL (70-100); HEMOLYSIS < 15 (0-50); Potassium 3.7 mmol/L (3.4-5.1); Sodium 134 mmol/L (137-145); Total Protein 7.5 g/dL (6.3-8.2)
[2021-08-14 12:06] LABS: NT-proBNP (BNP-Adult 18+) < 11 pg/mL (<125)
[2021-08-14 12:09] LABS: Troponin I < 0.012 ng/mL (0.01-0.034)
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
== END 2021-08-14 15:28 | disposition home or self-care (01) ==
LOC: ED 13:15 → LABOR 14:04 → OB 08-16 06:33
PROVIDERS: Emergency Provider Emergency Medicine; Visit Provider Family Medicine
DX: O26.893 Other specified pregnancy related conditions, third trimester (principal); R55 Syncope and collapse; Z3A.34 34 weeks gestation of pregnancy; V49.3XXA Car occupant (driver) (passenger) injured in unspecified nontraffic accident, initial encounter
CPT/HCPCS: 36415; 59025; 71045; 80053; 81003; 82550; 83880; 84484; 85025; 93005; 93010; 96360; 96361; 99284; G0378

== ENCOUNTER → 2021-08-14 12:35 | Outpatient (CLI) | payer OTHER, MEDICAID, SELFPAY ==
[2021-08-14 15:05] LABS: Appearance Urine UA CLOUDY; Bilirubin Urine UA NEGATIVE (NEGATIVE); Color Urine UA YELLOW; Glucose Urine UA NEGATIVE (Negative); Ketones Urine UA 1+ (NEGATIVE); Leukocyte Esterase Urine UA 2+ (NEGATIVE); Nitrite Urine UA NEGATIVE (Negative); Occult Blood Urine UA 1+ (Negative); Protein Urine UA 2+ (Negative); Specific Gravity Urine UA >=1.030 (1.000-1.035); Urobilinogen Urine UA 0.2 E.U./dL (0.2)
[2021-08-14 15:16] LABS: Amorphous Sediment Urine 3+; Bacteria Urine Many (>30); RBC Urine 10-30/HPF (0-5/HPF); Squamous Epithelial Cell Urine 10-30 /HPF (0-5/HPF); WBC Urine 5-10/HPF (0-5/HPF)
[2021-08-14 15:17] LABS: Culture Indicated Urine Cult Not Indicated; pH Urine UA 5.5 (4.5-8.0)
== END ==
PROVIDERS: Referring Provider Obstetrics & Gynecology; Visit Provider Obstetrics & Gynecology
DX: Z34.03 Encounter for supervision of normal first pregnancy, third trimester (principal); Z3A.34 34 weeks gestation of pregnancy; R31.9 Hematuria, unspecified; R82.4 Acetonuria
CPT/HCPCS: 81001

== ENCOUNTER → 2021-08-27 12:03 | Outpatient (CLI) | payer OTHER, MEDICAID, SELFPAY ==
--- NOTE | 2021-08-27 12:04 | DI.US.S_ITS ---
PROCEDURE: US OB LIMITED INDICATIONS: SGA OUTSIDE/PRIOR DATING DATA: Last menstrual period (LMP): Unknown LMP-based estimated date of delivery (EPHRAIM): Unknown . First dating scan (date and location): 02/13/21 . Estimated date of delivery (EPHRAIM) from first dating scan: 09/20/21 . TECHNIQUE: Real-time scanning was performed of the fetus, with image documentation and biometric measurements. Endovaginal scanning: Not performed COMPARISON: [facility], OB >= 14 WEEKS FETUS, 05/04/2021, 8:07. [facility], OB <= 14 WEEKS FETUS, 03/15/2021, 8:55. [facility], OB <= 14 WEEKS FETUS, 02/13/2021, 8:25. FINDINGS: General: A single living intrauterine gestation is present. Presentation: Vertex. Placenta: Placental position is anterior , without previa. Amniotic fluid index: 12.2 cm, normal range is 5-24 cm. heart rate: 133 beats per minute. biometrics: Biparietal diameter: 9.0 cm, 36 weeks 2 days Head circumference: 32.4 cm, 36 weeks 5 days Abdominal circumference: 32.7 cm, 36 weeks 4 days Femur length: 6.8 cm, 34 weeks 6 days Estimated gestational age from initial scan: 36 weeks 4 days Composite gestational age from present scan: 36 weeks 1 day Estimated weight and percentile: 2857 g, 42nd percentile Measurement variability for biometric dating: +/- 7 days from 14 weeks to 15 weeks 6 days gestation, +/- 10 days from 16 weeks to 21 weeks 6 days gestation, +/- 2 weeks from 22 weeks to 27 weeks 6 days gestation, +/- 3 weeks for 28 weeks gestation or later. weight reference: 4500 g or EFW >90/95% is considered macrosomia or large for gestational age. EFW <10% is small for gestational age. EFW 5% or less is considered intra-uterine growth restriction. Other: Not applicable. IMPRESSION: Single living intrauterine fetus in vertex presentation with a gestational age of 36 weeks and 1 day by today's ultrasound measurements, estimated weight 2857 g, 42nd percentile. Dictated by: Eagle Palacio M.D. on 08/27/2021 at 15:33 Approved by: Eagle Palacio M.D. on 08/27/2021 at 15:36
== END ==
PROVIDERS: Referring Provider Obstetrics & Gynecology; Visit Provider Obstetrics & Gynecology
DX: O26.13 Low weight gain in pregnancy, third trimester (principal); Z3A.36 36 weeks gestation of pregnancy
CPT/HCPCS: 76815

== ENCOUNTER → 2021-08-28 11:30 | Outpatient (CLI) | payer OTHER, MEDICAID, SELFPAY ==
[2021-08-30 16:00] LABS: Strep Grp B PCR POS for Grp B Strep
== END ==
PROVIDERS: Visit Provider Obstetrics & Gynecology
DX: Z34.03 Encounter for supervision of normal first pregnancy, third trimester (principal); Z3A.36 36 weeks gestation of pregnancy
CPT/HCPCS: 87653

== ENCOUNTER 2021-09-17 21:42 | Observation (INO) | payer OTHER, MEDICAID, SELFPAY ==
[2021-09-17] MEDS: MORPHINE 10 MG/ML INJ IM (23:39)
[2021-09-17] MEDS: hydrOXYzine 50 MG/ML INJ 25 MG IM (23:40)
--- NOTE | 2021-09-18 06:03 | P.TNLD_ITS ---
Visit Information Visit Information Date of evaluation: 09/18/21 Primary OB Provider: Lewis Spears On-call OB Provider: Silvana Matson Reason for Evaluation: Yes rule out labor Comments/Additional reasons for admission: Patient is a 26-year-old at 39 weeks and 3 days coming in with regular contractions every 5 minutes Denies leaking or bleeding and reports good movement. She is breathing through contractions and becoming quite uncomfortable. Vital Signs Vital Signs: Temperature 36.3? blood pressure 135/80 [facility] Medical History (Updated 09/18/21 @ 06:04 by Silvana Matson DO) Cardiac murmur (~1995) Cold sore (~2016) Heavy menses (~2007) Herpes simplex meningitis (~12/12/20) Syncope and collapse (~2001) Family History (Updated 02/08/21 @ 14:31 by Margie Elliott RN) Mother Ruptured ovarian cyst Father Family estrangement Grandmother Endometriosis Cerebral palsy H/O: hysterectomy Grandfather No problems noted. Grandmother Family estrangement Grandfather Family estrangement Social History marital status: household members: spouse lives independently: Yes caregiver/support person: No housing: house pets and animals: Yes (1 dog (safe w babies), 1 cat (aware).) education level: college (Some college, working on [employer]. ) occupational status: employed (Works at [employer] in [place].) current occupational exposures/hazards: No (Employer giving modifications.) special kvng needs: No seatbelt use: always do you feel safe at home: Yes Smoking Status: Never smoker second hand exposure: No alcohol intake: former (Pre-: rare/social.) substance use type: marijuana (Quit w/ .) during the past year weight has: remained stable well-balanced diet: daily or most days daily servings fruits/ve-4 caffeine: Yes Type(s) of exercise: walking, normal ROM and activity and additional (Horse riding, kayaking, archery, hiking.) frequency: daily duration: 30-45 minutes/day Evaluation Evaluation Baseline heart rate: 120 Variability: Moderate (11-25) monitor accelerations: Present Monitor Decelerations: Absent Contraction Frequency (minutes): 3 Category of Tracing: Reactive Cervical dilation (cm): 2 Cervical effacement (%): 60 station: -3 Diagnosis, Plan/Disposition Final Diagnosis (1) 39 weeks gestation of : Status: Acute Plan/Disposition Plan: Patient was monitored over several hours given regular painful contractions. She made some cervical change from 1-2 cm over many hours. She was given morphine and hydroxyzine with relief and discharged home. Suspect early labor and she may be back in the next day or two. OB Disposition: home
== END 2021-09-18 02:55 | disposition home or self-care (01) ==
PROVIDERS: Admitting Provider Obstetrics & Gynecology; Referring Provider Obstetrics & Gynecology; Visit Provider Obstetrics & Gynecology
DX: O47.1 False labor at or after 37 completed weeks of gestation (principal); Z3A.39 39 weeks gestation of pregnancy
CPT/HCPCS: 59025; G0378; G0379; J2270; J3410

== ENCOUNTER 2021-09-18 11:55 | Inpatient (IN) | payer OTHER, MEDICAID, SELFPAY ==
[2021-09-18 13:03] LABS: Add Manual Diff / Slide Review NO; Basophils Absolute Auto 100 /uL (0-100); Basophils Percent Auto 0.4 % (0-2); Eosinophils Absolute Auto 0 /uL (0-450); Eosinophils Percent Auto 0.1 % (2-4); Hematocrit 31.8 % (36-46); Hemoglobin 9.9 g/dL (12.0-16.0); Lymphocytes Absolute Auto 1400 /uL (1100-4500); Lymphocytes Percent Auto 8.8 % (25-40); Mean Corpuscular HGB Conc 31.1 % (30-36); Mean Corpuscular Hemoglobin 23.8 PG (26-34); Mean Corpuscular Volume 76.6 fL (80-100); Monocytes Absolute Auto 1000 /uL (0-900); Monocytes Percent Auto 6.1 % (3-14); Neutrophils Absolute Auto 13700 /uL (1500-7000); Neutrophils Percent Auto 84.6 % (50-75); Platelet Count 367 X10^3/uL (150-400); Red Blood Cell Count 4.15 X10^6/uL (4.0-5.2); Red Cell Distribution Width 15.3 % (11.6-14.8); White Blood Cell Count 16.1 X10^3/uL (4.5-11.0)
--- NOTE | 2021-09-18 13:11 | P.HPOB_ITS ---
OB HPI Date/Time Date of admission: 09/18/21 Date Patient Seen: 09/18/21 Time Patient Seen: 13:11 History of Present Condition Chief complaint: : 1 Para: 0 Estimated Date of Delivery: 09/21/21 Estimated Gestational Age (weeks): 39+4 Narrative: Candy Díaz is a 26 year old , EPHRAIM 09/21/2021 at 39+4 weeks EGA admitted in early labor after more than 12 hours of prodromal labor. GBS +. BOWI. 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 She also has mild asthma with rare rescue inhaler use. Mild BP elevation noted in late third trimester; will observe closely for GHTN/PEC in labor. Indications Other reason(s) for admission: Early labor, spontaneous History of Present care: good care Dating criteria: LMP confirmed by 1st trimester US Ultrasounds: normal 1st trimester US and normal mid trimester US Preadmission Labs Blood type: B (+) positive -: Antibody screen: negative, GBS status: positive, HBsAG: negative, HIV: negative, HSV 1: positive and RPR/VDLR: negative -: Chlamydia screen: not detected and Gonorrhea screen: not detected -: Rubella: immune and Varicella: immune HCT: 31.8 HCAB: negative PAP: Normal Sequential screen: Negative 1 hr GTT: 94 Prior (ies) History: Primigravida Evaluation Evaluation Baseline heart rate: 140 Variability: Moderate (11-25) monitor accelerations: Present Monitor Decelerations: Absent Contraction Frequency (minutes): 3 Uterine Contraction Intensity: Mild Category of Tracing: Reactive Status: Category l Cervical dilation (cm): 5 Cervical effacement (%): 75 station: -2 [facility] Medical History Cardiac murmur (~1995) Cold sore (~2016) Heavy menses (~2007) Herpes simplex meningitis (~12/12/20) Syncope and collapse (~2001) Family History Mother Ruptured ovarian cyst Father Family estrangement Grandmother Endometriosis Cerebral palsy H/O: hysterectomy Grandfather No problems noted. Grandmother Family estrangement Grandfather Family estrangement Social History marital status: household members: spouse lives independently: Yes caregiver/support person: No housing: house pets and animals: Yes (1 dog (safe w babies), 1 cat (aware).) education level: college (Some college, working on [employer]. ) occupational status: employed (Works at [email or web address] in [place].) current occupational exposures/hazards: No (Employer giving modifications.) special kvng needs: No seatbelt use: always do you feel safe at home: Yes Smoking Status: Never smoker second hand exposure: No alcohol intake: former (Pre-: rare/social.) substance use type: marijuana (Quit w/ .) during the past year weight has: remained stable well-balanced diet: daily or most days daily servings fruits/ve-4 caffeine: Yes Type(s) of exercise: walking, normal ROM and activity and additional (Horse riding, kayaking, archery, hiking.) frequency: daily duration: 30-45 minutes/day Meds Home Medications and Allergies Home Medications Medication Instructions Recorded Confirmed Type prenat.vits,leslee,qro-wmtt-pstmw 1 tab PO DAILY 02/08/21 09/18/21 History acyclovir 400 mg tablet 400 mg PO BID #60 tab 08/28/21 09/18/21 Rx Allergies Allergy/AdvReac Type Severity Reaction Status Date / Time Sulfa (Sulfonamide AdvReac Intermediate As a Verified 08/14/21 11:14 Antibiotics) child, in [SULFA (SULFONAMIDE eyedrops, ANTIBIOTICS)] redness/rash Review of Systems Review of Systems Narrative: Problem specific ROS positives included in HPI Exam Const General: cooperative and other (very tired, pain with contractions) Nutritional Appearance: average body habitus Orientation: alert and oriented x3 HENMT Head: normal to inspection, atraumatic and abrasion Ears: hearing grossly normal bilaterally Nose: external nose normal Face and sinus: face symmetric Mouth: oral mucosae normal Teeth and gingiva: dentition normal Throat: posterior oropharynx normal Eyes General: appearance normal, both eyes and all related structures Sclera: sclerae normal Cornea: corneas normal EOM: EOM intact bilaterally Neck Neck: normal visual inspection, full ROM and No lymphadenopathy Thyroid: thyroid normal Resp Effort & Inspection: normal respiratory effort and able to speak in complete sentences Auscultation: clear to auscultation bilaterally Cardio Rate: regular rate Rhythm: regular rhythm Heart Sounds: S1 normal, S2 normal and no murmurs GI Inspection: normal to inspection and other (Gravid contour) Palpation: soft and no hepatosplenomegaly External Female Exam: normal external appearance Uterus Location (Fundal Height): 36 Presentation: vertex Estimated Weight (lbs): 7 Skin General: no rashes or lesions noted Extrem General: no calf tenderness and edema (Trace) Psych Appearance: grossly normal Mental Status: mental status grossly normal Speech and Movement: speech and movement normal Mood: congruent mood Affect: normal affect Attitude: cooperative Thought Process: normal Thought Content: normal Judgment: judgment good Objective Labs Result Diagrams: 09/18/21 12:40 Labs: Laboratory Results - last 24 hr 09/18/21 12:40 WBC 16.1 H RBC 4.15 Hgb 9.9 L Hct 31.8 L MCV 76.6 L MCH 23.8 L MCHC 31.1 RDW 15.3 H Plt Count 367 Neut % (Auto) 84.6 H Lymph % (Auto) 8.8 L [place] % (Auto) 6.1 Eos % (Auto) 0.1 L Baso % (Auto) 0.4 Neut # (Auto) 58949 H Lymph # (Auto) 1400 [place] # (Auto) 1000 H Eos # (Auto) 0 Baso # (Auto) 100 Assessment and Plan Assessment and Plan Assessment and Plan narrative: ASSESSMENT 1. Intrauterine gestation, [place], vertex, 39+ 4 weeks gestation 2. GBS positive, antepartum 3. History of HSV meningitis 4. Mild blood pressure elevation PLAN 1. Admit for labor 2. GBS prophylaxis 3. Continue acyclovir 4. Close observation of blood pressure for persistent elevation; if present, will order PEC labs 5. AROM afetr 2nd dose PCN 6. Anticipates
[2021-09-18] MEDS: PENICILLIN G POTASSIUM 5,000,000 UNIT in DEXTROSE 5% IN WATER 250 ML IV (13:18)
[2021-09-18] MEDS: LACTATED RINGERS 1,000 ML 100 ML IV ×2 (13:19→14:35)
[2021-09-18 13:24] LABS: COVID19 -Nasal RAPID Negative (Negative)
[2021-09-18] MEDS: FENT 2MCG/ML BUPIV 0.125% EPI 200 MCG/100 ML PLAST..BAG 6 MCG EPIDURAL (13:30)
[2021-09-18 15:26] VITALS: BP 138/84
--- NOTE | 2021-09-18 15:58 | P.PCN_ITS ---
Regional Block Pre-procedure Procedure: Continuous Lumbar Epidural for L&D Attending OB provider: Lewis Spears PM/SONU narrative: term labor, no complications ASA Class: II Labs: Hct 31.8 % (36-46) L 09/18/21 12:40 Plt Count 367 X10^3/uL (150-400) 09/18/21 12:40 Medications: Current Medications Generic Name Dose Route Start Last Admin Trade Name Freq PRN Reason Stop Dose Admin Calcium Carbonate 500 mg 09/18/21 12:28 Calcium Carbonate 500 Mg Tab PO Q2HR PRN Dyspepsia Carboprost Tromethamine 250 mcg 09/18/21 12:25 Carboprost 250 Mcg/Ml Ampul IM Q90M PRN Bleeding Diphenhydramine HCl 25 mg 09/18/21 13:05 Diphenhydramine 50 Mg/Ml Vial IV Q10M PRN Pruritis Fentanyl 50 mcg 09/18/21 12:25 Fentanyl 100 Mcg/2 Ml Inj IV Q1H PRN Pain, Moderate (4-6) Lactated Ringer's 1,000 mls @ 100 mls/hr 09/18/21 12:30 09/18/21 14:35 Lactated Ringers IV 100 mls/hr CONT TIMOTHY Administration Oxytocin/Lactated Ringer's 30 unit in 500 mls @ 200 mls/hr 09/18/21 12:28 Oxytocin Premix IV CONT PRN Bleeding Protocol Tranexamic Acid 1,000 mg/ 100 mls @ 200 mls/hr 09/18/21 12:28 Sodium Chloride IV NOW PRN Bleeding Penicillin G Potassium 3,000,000 unit in 50 mls @ 100 mls/hr 09/18/21 17:00 Penicillin G Potassium IV Q4H TIMOTHY Lactated Ringer's 1,000 mls @ 100 mls/hr 09/18/21 12:30 Lactated Ringers IV CONT TIMOTHY FENT 2MCG/ML BUPIV 0.125% EPI 200 mcg in 100 mls @ 6 mls/hr 09/18/21 13:15 09/18/21 13:30 Fentanyl/Bupiv/Ns 2mcg/Ml - 0.125% EPIDURAL 6 mls/hr CONT TIMOTHY Administration Methylergonovine Maleate 0.2 mg 09/18/21 12:25 Methylergonovine 0.2 Mg Tablet PO Q6HR PRN Heavy Bleeding Methylergonovine Maleate 0.2 mg 09/18/21 12:25 Methylergonovine 0.2 Mg/Ml Vial IM NOW PRN Bleeding Metoclopramide HCl 10 mg 09/18/21 12:28 Metoclopramide 10 Mg/2 Ml Inj IV NOW PRN Nausea And Vomiting Misoprostol 800 mcg 09/18/21 12:28 Misoprostol 200 Mcg Tablet NM NOW PRN Bleeding Misoprostol 1,000 mcg 09/18/21 12:28 Misoprostol 200 Mcg Tablet NM NOW PRN Bleeding Misoprostol 400 mcg 09/18/21 12:28 Misoprostol 200 Mcg Tablet SL NOW PRN Bleeding Nalbuphine HCl 2.5 mg 09/18/21 13:05 Nalbuphine 20 Mg/Ml Ampul IV Q10M PRN Pruritis Naloxone HCl 0.2 mg 09/18/21 12:28 Naloxone 0.4 Mg/Ml Vial IV Q2MIN PRN Opiate Reversal Ondansetron HCl 4 mg 09/18/21 12:28 Ondansetron 4 Mg/2 Ml Inj IV Q4HR PRN Nausea And Vomiting Oxytocin 10 unit 09/18/21 12:28 Oxytocin 10 Unit/Ml Vial IM NOW PRN Bleeding Allergies: Allergies Allergy/AdvReac Type Severity Reaction Status Date / Time Sulfa (Sulfonamide AdvReac Intermediate As a Verified 08/14/21 11:14 Antibiotics) child, in [SULFA (SULFONAMIDE eyedrops, ANTIBIOTICS)] redness/rash Procedure Insertion date: 09/18/21 Insertion time: 13:20 Prep/Local: betadine x3 and 1% lidocaine Interspace: L2-3 Patient position: sitting Needle: 18 gauge [employer] (CSE: 27g [place] through [place], clear CSF, 1mL 0.25% bupiv ) Loss of resistance with: saline CEZAR at (cm): 4 Catheter placed at SKIN (cm): 10 Catheter in SPACE (cm): 6 Insertion: No CSF, No Blood, No Paresthesia with insertion, No Paresthesia with injection and No Test dose reaction Initial Medications TEST DOSE time: 13:22 TEST DOSE: 1.5% lidocaine with epinephrine 1:200k (mL): 3 BOLUS DOSE time: 13:31 BOLUS DOSE (mL): 3 BOLUS DOSE med: other (infusate) Infusion INFUSION: 0.125% bupivacaine and with fentanyl 2 mcg/mL Initial rate (mL/hr): 6 Subsequent interventions: 1800 rate to 8 Post-procedure Anesthesia time START: 13:13 Anesthesia time END: 20:09 Post-procedure Anesthesia Assessment: Yes CV function: HR/BP stable, Yes Resp function: RR/sat/airway adequate, Yes Mental status appropriate and No Anesthesia complications
[2021-09-18] MEDS: OXYTOCIN PREMIX 30 UNIT/500 ML PLAST..BAG IV (16:18)
[2021-09-18] MEDS: PENICILLIN G POTASSIUM 3,000,000 UNIT/50 ML FROZ.PIGGY 100 UNIT IV (17:13)
--- NOTE | 2021-09-18 19:47 | PM.OBPNLAB ---
Date/Time Date Patient Seen: 09/18/21 Time Patient Seen: 19:48 Pain Control Pain control: tolerating well Pelvic Exam Dilation (cm): 10 Effacement (%): 100 station: +2 Amniotic membrane status: Ruptured Comments: AROM clear fluid @ 1730 Contractions Pitocin rate (mU/min): 3 Contraction frequency (min): 3 Contraction duration (min): 1 Contraction phase: Contraction Contraction intensity: Strong/Firm Status status: Category l Heart Rate Baseline: 125 Monitor Accelerations: Present Monitor Decelerations: Absent Monitor Variability: Moderate Assessment and Plan Assessment: active labor Plan: continuous present management Comments: Begin pushing.
--- NOTE | 2021-09-18 20:34 | PM.OBPRVD ---
Labor & Delivery Delivery date: 09/18/21 Intrapartal Events: Prolonged Latent Phase Cervical ripening method: none Induction method: none Delivery augmentation: rupture of membranes Delivery monitor: external FHT and external uterine Route of delivery: Episiotomy description: None L&D Laceration Description: Perineal - 2nd Degree Delivery repair: chromic Estimated blood loss (mL): 100 Narrative: After the patient became completely dilated with the vertex in JANA position at +2 station, pushing was initiated. She pushed well and delivered spontaneously over an intact perineum a viable female , weight 3209 gms (7# 1.2 oz.), Apgars 8/9 at 20:09 p.m., 09/18/2021. The shoulders delivered without resistance and there was a compound presentation involving the right hand. There were no cord entanglements. Following delivery the was immediately placed skin to skin with the mother and delayed cord clamping performed. After greater than 90 seconds, the umbilical cord was doubly clamped and cut by the father. Cord blood was obtained for routine lab studies. The placenta delivered spontaneously and was found to be intact with 3 vessels centrally inserting. Attention was then turned to the perineum and vagina. There were no vaginal lacerations but there was a small midline second-degree perineal laceration which was repaired with 2-0 chromic in the usual manner. Estimated blood loss was approximately 100 cc and no complications were experienced. Mother and infant are doing well at the conclusion of the delivery process. Plan for aftercare: Routine care
--- NOTE | 2021-09-19 07:40 | PM.OBPN.1 ---
Subjective - OB Subjective Patient comments: no complaints and pain well controlled Mcallister baby status: doing well Mcallister feeding status: exclusively breast feeding Date Patient Seen: 09/19/21 Time Patient Seen: 07:50 Exam Const General: cooperative and comfortable HENMT Head: normal to inspection Eyes General: appearance normal, both eyes and all related structures Neck Neck: normal visual inspection Resp Effort & Inspection: normal respiratory effort and able to speak in complete sentences GI Inspection: normal to inspection Palpation: soft, no hepatosplenomegaly and mass (U-4 firm nontender fundus) External Female Exam: other (Intact perineal laceration repair) Extrem General: no calf tenderness Psych Appearance: grossly normal Mental Status: mental status grossly normal Speech and Movement: speech and movement normal Mood: congruent mood Affect: normal affect Attitude: cooperative Thought Process: normal Thought Content: normal Judgment: judgment good Objective Labs Result Diagrams: 09/19/21 11:12 Labs: Laboratory Results - last 24 hr 09/18/21 09/18/21 09/18/21 12:40 12:40 12:40 WBC 16.1 H RBC 4.15 Hgb 9.9 L Hct 31.8 L MCV 76.6 L MCH 23.8 L MCHC 31.1 RDW 15.3 H Plt Count 367 Neut % (Auto) 84.6 H Lymph % (Auto) 8.8 L [place] % (Auto) 6.1 Eos % (Auto) 0.1 L Baso % (Auto) 0.4 Neut # (Auto) 34257 H Lymph # (Auto) 1400 [place] # (Auto) 1000 H Eos # (Auto) 0 Baso # (Auto) 100 SARS-CoV-2 (PCR) Negative Blood Type B Positive Antibody Screen Negative Assessment & Plan Plan day: 1 plan OB: routine care and discharge home (Later today once infant cleared for discharge) Time Spent With Patient Time: Total time spent is greater than 50% in coordination of care (as documented) at patient's floor/unit and/or counseling patient: Time with patient: less than 15 minutes
[2021-09-19] MEDS: PRENATAL VIT,CALC/IRON/FOLIC 1 TABLET 1 TAB PO (09:12)
[2021-09-19] MEDS: DOCUSATE 100 MG CAPSULE PO (09:12)
[2021-09-19 11:20] LABS: Add Manual Diff / Slide Review NO; Basophils Absolute Auto 100 /uL (0-100); Basophils Percent Auto 0.6 % (0-2); Eosinophils Absolute Auto 100 /uL (0-450); Eosinophils Percent Auto 0.4 % (2-4); Hematocrit 28.5 % (36-46); Lymphocytes Absolute Auto 1900 /uL (1100-4500); Lymphocytes Percent Auto 12.3 % (25-40); Mean Corpuscular HGB Conc 31.6 % (30-36); Mean Corpuscular Hemoglobin 24.1 PG (26-34); Mean Corpuscular Volume 76.3 fL (80-100); Monocytes Absolute Auto 1300 /uL (0-900); Monocytes Percent Auto 8.6 % (3-14); Neutrophils Absolute Auto 11900 /uL (1500-7000); Neutrophils Percent Auto 78.1 % (50-75); Platelet Count 335 X10^3/uL (150-400); Red Blood Cell Count 3.73 X10^6/uL (4.0-5.2); Red Cell Distribution Width 15.8 % (11.6-14.8); White Blood Cell Count 15.3 X10^3/uL (4.5-11.0)
[2021-09-19 12:50] VITALS: TEMP 36.7
[2021-09-19] MEDS: ACETAMINOPHEN 325 MG TABLET 650 MG PO (12:50)
[2021-09-19 12:51] VITALS: TEMP 36.7
[2021-09-19] MEDS: IBUPROFEN 600 MG TABLET PO (12:51)
[2021-09-19 17:53] VITALS: BP 131/80; PULSE 91; RESP 16; TEMP 36.4
--- NOTE | 2021-09-19 17:53 | PM.OBDS.1 ---
Discharge Providers Provider Date of admission: 09/18/21 11:55 Discharge Date: 09/19/21 Consults: 09/18/21 12:28 Consult to Anesthesiology Urgent Comment: Consulting Provider: Lewis Spears Reason for consultation: MARQUITA in labor if requested by patient Has provider been notified: No 09/19/21 20:29 Consult to [place] Routine Comment: Discharge provider: Lewis Spears MD Summary Hospital Course Date Patient Seen: 09/19/21 Time Patient Seen: 17:40 Diagnoses: Intrauterine gestation, [place], term, delivered Group B strep carrier Hospital Course: Following long prodromal labor, the patient was admitted on the morning of 09/18/2021 in latent phase labor. She progressed spontaneously into the active phase and received IV antibiotic prophylaxis for her GBS positive carrier status. Following her 2nd dose of IV antibiotics, AROM performed with clear fluid noted and she progressed relatively quickly into the 2nd stage. She pushed well and delivered spontaneously a viable female infant Apgars of 8 and 9 with a weight of 3209 g (7# 1.2 oz). She sustained a superficial second-degree perineal laceration which was repaired in the usual manner. Following delivery mother and baby have both done very well. Mother has had prompt return of bowel and bladder function, is ambulating independently, tolerating regular diet, and her pain is well controlled with Tylenol and/or ibuprofen. She will be discharged at this time in an afebrile normotensive condition to home with medications to include oxycodone 5 mg 1 p.o. q.4 hours as needed pain dispense 12 with no refills, ibuprofen 600 mg p.o. q.6 hours as needed pain dispensed 60 with 2 refills, and Colace 100 mg p.o. b.i.d. times 30 days. In addition the patient will be initiated on Micronor for contraception and was advised that when she finishes she will need to switch over to combination OCs. Prior to discharge she was counseled regarding precautionary symptoms, limitations activity, medications, and plans for follow-up in 6 weeks. Peripartum Data Infant Delivery Method: Natural Vaginal Laceration Description: Perineal - 2nd Degree Episiotomy description: None complications: none 1: Gender: Female Disposition of : home Status at Discharge Cognitive/behavioral status at discharge: oriented Functional status at discharge: independent ambulation Overall status at discharge: patient is progressing back to baseline Time Spent with Patient Time attestation: Total time spent providing and/or coordinating discharge services: Time spent: Less than 30 minutes Objective Labs Result Diagrams: 09/19/21 11:12 Labs: Laboratory Results - last 24 hr 09/19/21 11:12 WBC 15.3 H RBC 3.73 L Hgb 9.0 L Hct 28.5 L MCV 76.3 L MCH 24.1 L MCHC 31.6 RDW 15.8 H Plt Count 335 Neut % (Auto) 78.1 H Lymph % (Auto) 12.3 L [place] % (Auto) 8.6 Eos % (Auto) 0.4 L Baso % (Auto) 0.6 Neut # (Auto) 82527 H Lymph # (Auto) 1900 [place] # (Auto) 1300 H Eos # (Auto) 100 Baso # (Auto) 100 Exam Vital Signs (past 8 hours): - 09/19/21 12:50 09/19/21 12:51 Temperature 98.0 F 98.0 F Const General: cooperative and comfortable Nutritional Appearance: average body habitus Orientation: alert and oriented x3 HENMT Head: normal to inspection Eyes General: appearance normal, both eyes and all related structures Neck Neck: normal visual inspection Resp Effort & Inspection: normal respiratory effort and able to speak in complete sentences GI Inspection: normal to inspection Palpation: soft, no hepatosplenomegaly and mass (Firm, nontender fundus @ U-4) External Female Exam: laceration (Repair intact an jonathan healing ongoing) Psych Appearance: grossly normal Mental Status: mental status grossly normal Speech and Movement: speech and movement normal Mood: congruent mood Affect: normal affect Thought Process: normal Thought Content: normal Judgment: judgment good Discharge Plan Discharge Plan Patient Disposition: Home Provider Discharge Comment: please review the written instructions provided at discharge. Your follow-up appointment is scheduled for six weeks after delivery and I look forward to seeing you then. In the meanwhile, please contact the office with any questions or concerns. Nursing Discharge Comment: Appointment with on Wednesday, October 31 at 2:00 pm for check Discharge orders & Medications Prescriptions: New docusate sodium 100 mg Capsule 100 mg PO BID Qty: 60 RF: 2 ibuprofen 600 mg Tablet 600 mg PO Q6HR PRN (Reason: Pain, Mild (1-3)) Qty: 60 RF: 1 oxycodone 5 mg tablet 5 mg PO Q4H PRN (Reason: pain) Qty: 12 RF: 0 Continued prenat.vits,leslee,[id number] Tablet 1 tab PO DAILY RF: 0 acyclovir 400 mg tablet 400 mg PO BID Qty: 60 RF: 4 Discharge Health Status Multidrug resistant organism: No MDRO Diet/Activity/Treatments Diet: Diet as Tolerated Activity: As tolerated Skin/Wound/Dressing Care Report to your healthcare provider any signs of infection, such as:: chills, fever, increased pain, unusual drainage and unusual redness Visit Report/Discharge Packet Instructions: DI for Labor and Delivery, Vaginal , DI for and Nipple Soreness, DI for Prescription Opioid Use Stand Alone Forms: Discharge: Care
== END 2021-09-19 19:04 | disposition home or self-care (01) | DRG 560 ==
PROVIDERS: Admitting Provider Obstetrics & Gynecology; Referring Provider Obstetrics & Gynecology; Visit Provider Obstetrics & Gynecology
DX: O99.824 Streptococcus B carrier state complicating childbirth (principal); O47.1 False labor at or after 37 completed weeks of gestation; O63.0 Prolonged first stage (of labor); Z3A.39 39 weeks gestation of pregnancy; Z37.0 Single live birth; O99.891 Other specified diseases and conditions complicating pregnancy; J45.20 Mild intermittent asthma, uncomplicated; O99.834 Other infection carrier state complicating childbirth; B00.2 Herpesviral gingivostomatitis and pharyngotonsillitis; O70.1 Second degree perineal laceration during delivery
CPT/HCPCS: 01967; 36415; 59025; 59050; 59400; 59409; 85025; 86850; 86900; 86901; 87635; C9803; G0378; G0379; J2270; J2540; J2590; J3410

== ENCOUNTER → 2021-12-05 07:14 | Outpatient (CLI) | payer OTHER, MEDICAID, SELFPAY ==
[2021-12-05 08:01] LABS: COVID19 -Nasal RAPID Negative (Negative)
== END ==
PROVIDERS: Visit Provider Nurse Practitioner Family
DX: Z20.822 Contact with and (suspected) exposure to COVID-19 (principal)
CPT/HCPCS: 87635

== ENCOUNTER → 2024-02-09 08:45 | Outpatient (CLI) | payer OTHER, MEDICAID, SELFPAY ==
--- NOTE | 2024-02-09 08:47 | DI.US.S_ITS ---
PROCEDURE: US OB <= 14 WEEKS FETUS INDICATIONS: DATES OUTSIDE/PRIOR DATING DATA: Last menstrual period (LMP): 12/07/2023. LMP-based estimated date of delivery (EPHRAIM): 09/12/2024. First dating scan (date and location): 02/09/2024. Estimated date of delivery (EPHRAIM) from first dating scan: 09/11/2024. TECHNIQUE: Real-time scanning was performed of the fetus and maternal pelvic organs, with image documentation. Endovaginal scanning was also performed to better visualize the fetus and maternal ovaries. COMPARISON: [facility], US, OB <= 14 WEEKS FETUS, 03/15/2021, 8:55. FINDINGS: Yolk sac is present. [place]-rump length measures 2.5 cm, ultrasound age is 9 weeks and 2 days. Heart rate is 175 beats per minute. Adnexal structures within normal limits. IMPRESSION: Living intrauterine gestation at an ultrasound age of 9 weeks and 2 days. This is concordant with the reported LMP. Dictated by: Peter Lewis M.D. on 02/09/2024 at 13:03 Approved by: Peter Lewis M.D. on 02/09/2024 at 13:04
== END ==
PROVIDERS: Referring Provider Obstetrics & Gynecology; Visit Provider Obstetrics & Gynecology
DX: Z34.81 Encounter for supervision of other normal pregnancy, first trimester (principal); Z3A.09 9 weeks gestation of pregnancy
CPT/HCPCS: 76801; 76817

== ENCOUNTER → 2024-03-02 08:31 | Outpatient (CLI) | payer OTHER, MEDICAID, SELFPAY ==
[2024-03-02 09:47] LABS: Natera Collection Specimen Collected
[2024-03-02 09:55] LABS: Add Manual Diff / Slide Review NO; Basophils Absolute Auto 0 /uL (0-100); Basophils Percent Auto 0.4 % (0-2); Eosinophils Absolute Auto 200 /uL (0-450); Eosinophils Percent Auto 1.9 % (2-4); Hematocrit 33.9 % (36-46); Hemoglobin 11.6 g/dL (12.0-16.0); Lymphocytes Absolute Auto 1900 /uL (1100-4500); Lymphocytes Percent Auto 18.8 % (25-40); Mean Corpuscular HGB Conc 34.2 % (30-36); Mean Corpuscular Hemoglobin 27.9 PG (26-34); Mean Corpuscular Volume 81.6 fL (80-100); Monocytes Absolute Auto 800 /uL (0-900); Neutrophils Absolute Auto 7100 /uL (1500-7000); Neutrophils Percent Auto 70.9 % (50-75); Platelet Count 344 X10^3/uL (150-400); Red Blood Cell Count 4.16 X10^6/uL (4.0-5.2); Red Cell Distribution Width 18.6 % (11.6-14.8); White Blood Cell Count 10.1 X10^3/uL (4.5-11.0)
[2024-03-02 11:33] LABS: Hepatitis B Surface Antigen NEGATIVE s/c (NEGATIVE); Rubella Antibody IgG 23.2 IU/mL (>15)
[2024-03-02 11:43] LABS: HIV 1 & 2 Ab/Ag 4th Gen Combo NEGATIVE (NEGATIVE); Hep C Virus Ab w/Reflex Quant NEGATIVE s/c (NEGATIVE)
[2024-03-02 14:39] LABS: Urine Chlamydia NOT DETECTED; Urine N gonorrhoeae NOT DETECTED
[2024-03-03 06:10] LABS: RPR Screen Non Reactive (Non Reactive)
[2024-03-03 09:29] LABS: Varicella IgG Antibody 508 index (Immune >165)
== END ==
PROVIDERS: Referring Provider Obstetrics & Gynecology; Visit Provider Obstetrics & Gynecology
DX: Z34.81 Encounter for supervision of other normal pregnancy, first trimester (principal); Z11.3 Encounter for screening for infections with a predominantly sexual mode of transmission
CPT/HCPCS: 36415; 80055; 86787; 86803; 86850; 86900; 86901; 87389; 87491; 87591

== ENCOUNTER → 2024-05-03 07:40 | Outpatient (CLI) | payer OTHER, MEDICAID, SELFPAY ==
--- NOTE | 2024-05-03 07:41 | DI.US.S_ITS ---
PROCEDURE: US OB >= 14 WEEKS FETUS INDICATIONS: Anatomy Scan OUTSIDE/PRIOR DATING DATA: Last menstrual period (LMP): December 07, 2023. LMP-based estimated date of delivery (EPHRAIM): September 12, 2024. First dating scan (date and location): February 09, 2024 Estimated date of delivery (EPHRAIM) from first dating scan: September 11, 2024 The calculations are made using the LMP EPHRAIM of September 12, 2024. TECHNIQUE: Real-time scanning was performed of the fetus, with image documentation and biometric measurements. Endovaginal scanning: Not performed COMPARISON: [facility], OB >= 14 WEEKS FETUS, 05/04/2021, 8:07. FINDINGS: General: A single living intrauterine gestation is present. Presentation: Breech. Placenta: Placental position is anterior , without previa. Amniotic fluid index: 15 cm, normal range is 5-24 cm. Single deepest vertical pocket is 4.1 cm. heart rate: 133 beats per minute. Maternal cervical canal: 4.2 cm long. Normal lower limit is 2.5 cm. biometrics: Biparietal diameter: 5.0 cm, 21 weeks and 0 days Head circumference: 18.5 cm, 20 weeks and 6 days Abdominal circumference: 16.9 cm, 21 weeks and 6 days Femur length: 3.4 cm, 20 weeks and 5 days Clinically estimated gestational age: 21 weeks and 1 day Composite gestational age from present scan: 21 weeks and 1 day Estimated weight and percentile: 411 g, 51st percentile Anatomic survey: Neuro: Ventricles are non-dilated at less than 10 mm. Cisterna magna is normal at 3-11 mm. Cerebellum is normal in size and morphology. Nuchal skin fold: Normal at less than 6 mm between 14-21 weeks gestational age. Face: Nose and lips, facial profile are normal. Spine: No evidence for spina bifida. Heart: 4-chambered heart is present, with normal ventricular outflow tracts. Diaphragm: Diaphragm is intact. Stomach: Left-sided stomach is present. Suggestion of possible prominent gallbladder. Kidneys: No hydronephrosis. Normal is less than 5 mm in 2nd trimester, less than 7 mm in 3rd trimester. Cord: 3-vessel cord has orthotopic insertion. Bladder: Normal in size. Extremities: All 4 extremities identified. IMPRESSION: Single living intrauterine gestation with estimated sonographic gestational age of approximately 21 weeks and 1 day. Estimated weight of 411 g which correlates with the 51st percentile for gestational age. Possible prominent gallbladder. This is of uncertain clinical significance. Consider follow-up imaging at 32 weeks gestational age to confirm. Otherwise, normal routine anatomy screening survey. We strive to produce accurate, complete, and clear reports of imaging services. To assist us in improving patient care, this report was composed using standard report templates and voice recognition software. Therefore, it may contain abnormal punctuation, insertions and/or omissions. Occasional wrong-word or sound-alike substitutions may occur. Though we review the report and make efforts to correct it, we do recommend that the report be read carefully in proper context to recognize any text inaccuracies. Dictated by: Dony Can M.D. on 05/03/2024 at 13:25 Approved by: Dony Can M.D. on 05/03/2024 at 13:30
== END ==
PROVIDERS: Referring Provider Obstetrics & Gynecology; Visit Provider Obstetrics & Gynecology
DX: Z34.82 Encounter for supervision of other normal pregnancy, second trimester (principal); Z3A.21 21 weeks gestation of pregnancy
CPT/HCPCS: 76811

== ENCOUNTER → 2024-06-02 08:54 | Outpatient (CLI) | payer OTHER, MEDICAID, SELFPAY ==
[2024-06-02 10:59] LABS: Hematocrit 29.8 % (36-46); Hemoglobin 9.9 g/dL (12.0-16.0)
[2024-06-02 11:10] LABS: GTT (PREG) 1 Hour PP 50gm Dose 80 mg/dL (76-139)
== END ==
PROVIDERS: Referring Provider Obstetrics & Gynecology; Visit Provider Obstetrics & Gynecology
DX: Z34.92 Encounter for supervision of normal pregnancy, unspecified, second trimester (principal)
CPT/HCPCS: 36415; 82950; 85014; 85018

== ENCOUNTER → 2024-07-22 08:49 | Outpatient (CLI) | payer OTHER, MEDICAID, SELFPAY ==
--- NOTE | 2024-07-22 | DI.US.S_ITS ---
PROCEDURE: US OB FOLLOW UP INDICATIONS: FOLLOW UP PROMINENT GALLBLADDER OUTSIDE/PRIOR DATING DATA: Last menstrual period (LMP): 12/07/2023 LMP-based estimated date of delivery (EPHRAIM): 09/12/2024. First dating scan (date and location): 02/09/2024. Estimated date of delivery (EPHRAIM) from first dating scan: 09/11/2024. The calculations are made using the clinical EPHRAIM of 09/12/2024. TECHNIQUE: Real-time scanning was performed of the fetus, with image documentation. COMPARISON: [facility], US, US OB >= 14 WEEKS FETUS, 05/03/2024, 7:55. FINDINGS: A single living intrauterine gestation is present. Presentation: Vertex. Placenta: Placental position is anterior, without previa. Amniotic fluid index: 20.9 cm, normal range is 5-24 cm. Single deepest vertical pocket is 5.5 cm. heart rate: 133 beats per minute. Maternal cervical canal: 5.1 cm long. Normal lower limit is 2.5 cm. Clinically estimated gestational age: 32 weeks 4 days Miscellaneous: Area of presumed prominent gallbladder on prior exam appears relatively unchanged. IMPRESSION: Single live intrauterine with ultrasound gestational age 32 weeks 4 days. Suspected appearance of persistent distended gallbladder. Dictated by: Kaylee Holman M.D. on 07/22/2024 at 15:51 Approved by: Kaylee Holman M.D. on 07/22/2024 at 15:58
== END ==
PROVIDERS: Referring Provider Obstetrics & Gynecology; Visit Provider Obstetrics & Gynecology
DX: O28.3 Abnormal ultrasonic finding on antenatal screening of mother (principal); Z3A.32 32 weeks gestation of pregnancy
CPT/HCPCS: 76816

== ENCOUNTER → 2024-08-04 11:13 | Outpatient (CLI) | payer OTHER, MEDICAID, SELFPAY ==
[2024-08-04 11:50] LABS: Hematocrit 29.9 % (36-46); Hemoglobin 9.8 g/dL (12.0-16.0)
== END ==
PROVIDERS: Referring Provider Obstetrics & Gynecology; Visit Provider Obstetrics & Gynecology
DX: O99.019 Anemia complicating pregnancy, unspecified trimester (principal)
CPT/HCPCS: 36415; 85014; 85018

== ENCOUNTER 2024-08-06 17:04 | Emergency (ER) | payer OTHER, MEDICAID, SELFPAY ==
[2024-08-06] VITALS (9 sets, daily range): BP systolic 99–128; BP diastolic 54–75; PULSE 76–89; RESP 14–32; TEMP 36.6; O2SAT 99–100; BMI 30.3
--- NOTE | 2024-08-06 17:20 | DI.RAD.S_ITS ---
PROCEDURE: XR CHEST 1V INDICATIONS: chest pain TECHNIQUE: One view of the chest was acquired. COMPARISON: [facility], CR, XR CHEST 1V, 08/14/2021, 11:24. FINDINGS: Surgical changes and devices: None. Lungs and pleura: Lungs are clear. No pleural effusions or pneumothorax. Mediastinum: Mediastinal contours appear normal. Heart size is normal. Bones and chest wall: No suspicious bony lesions. Overlying soft tissues appear unremarkable. IMPRESSION: No acute pulmonary process. Dictated by: Kaylee Holman M.D. on 08/06/2024 at 18:00 Approved by: Kaylee Holman M.D. on 08/06/2024 at 18:00
[2024-08-06 17:27] LABS: Prothrombin Time 11.5 SECONDS (9.4-12.5)
[2024-08-06 17:30] LABS: PTT Partial Thromboplastin Tim 27 SECONDS (25.1-36.5)
[2024-08-06] MEDS: SODIUM CHLORIDE 0.9% 1,000 ML 1000 ML IV (17:30)
[2024-08-06 17:32] LABS: Add Manual Diff / Slide Review NO; Alanine Aminotransferase 20 IU/L (<35); Albumin 3.6 g/dL (3.5-5.0); Alkaline Phosphatase 152 U/L (38-126); Aspartate Aminotransferase 29 IU/L (14-36); BUN Creatinine Ratio 9.4 (6-22); Basophils Absolute Auto 0 /uL (0-100); Basophils Percent Auto 0.3 % (0-2); Bilirubin Total 0.8 mg/dL (0.2-1.3); Blood Urea Nitrogen 5 mg/dL (7-17); Calcium 9.3 mg/dL (8.4-10.2); Carbon Dioxide 20 mmol/L (22-32); Chloride 107 mmol/L (98-107); Creatine Kinase 26 U/L (30-135); Eosinophils Absolute Auto 100 /uL (0-450); Eosinophils Percent Auto 0.5 % (2-4); Estimated Glomerular Filt Rate > 60 mL/min (>60); Globulin 3.5 g/dL (1.7-4.1); Glucose 98 mg/dL (70-100); HEMOLYSIS < 15 (0-50); Hematocrit 28.5 % (36-46); Hemoglobin 9.2 g/dL (12.0-16.0); Lipase 119 U/L (23-300); Lymphocytes Absolute Auto 1800 /uL (1100-4500); Lymphocytes Percent Auto 15.8 % (25-40); Magnesium 1.7 mg/dL (1.6-2.3); Mean Corpuscular HGB Conc 32.3 % (30-36); Mean Corpuscular Hemoglobin 24.9 PG (26-34); Mean Corpuscular Volume 77.2 fL (80-100); Monocytes Absolute Auto 900 /uL (0-900); Neutrophils Absolute Auto 8600 /uL (1500-7000); Neutrophils Percent Auto 75.4 % (50-75); Platelet Count 334 X10^3/uL (150-400); Potassium 3.5 mmol/L (3.4-5.1); Red Blood Cell Count 3.69 X10^6/uL (4.0-5.2); Red Cell Distribution Width 15.6 % (11.6-14.8); Sodium 133 mmol/L (137-145); Total Protein 7.1 g/dL (6.3-8.2); White Blood Cell Count 11.4 X10^3/uL (4.5-11.0)
[2024-08-06 17:44] LABS: NT-proBNP (BNP-Adult 18+) < 20 pg/mL (<125); Troponin I < 0.012 ng/mL (0.01-0.034)
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
[2024-08-06 19:25] LABS: Bacteria Urine Occasional (0-1); Culture Indicated Urine Cult Not Indicated; Mucus Urine 3+ (Negative); RBC Urine 0-1/HPF (0-5/HPF); Squamous Epithelial Cell Urine >30 /HPF (0-5/HPF); Urine Volume 10mL (spun); WBC Urine 0-1/HPF (0-5/HPF)
--- NOTE | 2024-08-06 19:39 | EKG_ITS ---
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
== END 2024-08-06 19:50 | disposition home or self-care (01) ==
PROVIDERS: Emergency Medicine; Emergency Provider Emergency Medicine
DX: R55 Syncope and collapse (principal); R07.9 Chest pain, unspecified; Z3A.35 35 weeks gestation of pregnancy; O26.893 Other specified pregnancy related conditions, third trimester; Z3A.34 34 weeks gestation of pregnancy
CPT/HCPCS: 59025; 71045; 80053; 81003; 81015; 82550; 83690; 83735; 83880; 84484; 85025; 85610; 85730; 93005; 96360; 99284

== ENCOUNTER 2024-08-06 20:00 | Outpatient (CLI) | payer OTHER, MEDICAID, SELFPAY | END 2024-08-06 20:50 | disposition home or self-care (01) | LOC: OB 08-09 06:38 | PROVIDERS: Referring Provider Obstetrics & Gynecology; Visit Provider Obstetrics & Gynecology | DX: O26.893 Other specified pregnancy related conditions, third trimester (principal); Z3A.34 34 weeks gestation of pregnancy; R55 Syncope and collapse | CPT/HCPCS: 59025; G0378; G0379 ==

== ENCOUNTER → 2024-08-17 11:11 | Outpatient (CLI) | payer OTHER, MEDICAID, SELFPAY ==
[2024-08-18 12:00] LABS: Strep Grp B PCR NEG for Grp B Strep
== END ==
PROVIDERS: Visit Provider Obstetrics & Gynecology
DX: Z36.85 Encounter for antenatal screening for Streptococcus B (principal)
CPT/HCPCS: 87653

== ENCOUNTER → 2024-09-13 10:30 | Oncology outpatient (ONC) | payer OTHER, MEDICAID, SELFPAY ==
[2024-09-07 10:34] VITALS: BP 124/81; PULSE 84; RESP 16; TEMP 36.7; O2SAT 100
[2024-09-07] MEDS: ferumoxytoL 510 MG in SODIUM CHLORIDE 0.9% 100 ML 468 MG IV (10:51)
[2024-09-07 11:38] VITALS: BP 120/75; PULSE 66; RESP 18; TEMP 36.9; O2SAT 95
[2024-09-13 10:48] VITALS: BP 118/73; PULSE 73; RESP 18; TEMP 36.8; O2SAT 99
[2024-09-13] MEDS: ferumoxytoL 510 MG in SODIUM CHLORIDE 0.9% 100 ML 250 MG IV (11:02)
[2024-09-13 11:41] VITALS: BP 128/79; PULSE 64; RESP 18; TEMP 36.6; O2SAT 96
== END ==
PROVIDERS: PCP Nurse Practitioner Family; Referring Provider Obstetrics & Gynecology; Visit Provider Obstetrics & Gynecology
DX: O99.019 Anemia complicating pregnancy, unspecified trimester (principal)
CPT/HCPCS: 96365; Q0138

== ENCOUNTER 2024-09-17 08:02 | Inpatient (IN) | payer OTHER, MEDICAID, SELFPAY ==
[2024-09-17] MEDS: LACTATED RINGERS 1,000 ML 100 ML IV (08:30)
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
[2024-09-17 08:44] LABS: Add Manual Diff / Slide Review NO; Basophils Absolute Auto 100 /uL (0-100); Basophils Percent Auto 0.5 % (0-2); Eosinophils Absolute Auto 100 /uL (0-450); Eosinophils Percent Auto 0.4 % (2-4); Hematocrit 35.2 % (36-46); Hemoglobin 11.2 g/dL (12.0-16.0); Lymphocytes Absolute Auto 1900 /uL (1100-4500); Lymphocytes Percent Auto 13.2 % (25-40); Mean Corpuscular HGB Conc 31.8 % (30-36); Mean Corpuscular Hemoglobin 24.3 PG (26-34); Mean Corpuscular Volume 76.2 fL (80-100); Monocytes Absolute Auto 700 /uL (0-900); Monocytes Percent Auto 5.2 % (3-14); Neutrophils Absolute Auto 11300 /uL (1500-7000); Neutrophils Percent Auto 80.7 % (50-75); Platelet Count 350 X10^3/uL (150-400); Red Blood Cell Count 4.62 X10^6/uL (4.0-5.2); Red Cell Distribution Width 17.7 % (11.6-14.8)
[2024-09-17] MEDS: FENT 2MCG/ML BUPIV 0.125% EPI 200 MCG/100 ML PLAST..BAG 6 MCG EPIDURAL (09:00)
--- NOTE | 2024-09-17 09:32 | P.PCN_ITS ---
[facility] Pre-procedure Procedure: Continuous Lumbar Epidural for L&D Attending OB provider: Lewis Spears PM/ROS narrative: term labor, no medical or obstetric complications ASA Class: II Labs: Hct 35.2 % (36-46) L 09/17/24 08:22 Plt Count 350 X10^3/uL (150-400) 09/17/24 08:22 Medications: Current Medications Generic Name Dose Route Start Last Admin Trade Name Freq PRN Reason Stop Dose Admin Carboprost Tromethamine 250 mcg 09/17/24 08:26 Carboprost 250 Mcg/Ml Ampul IM Q90M PRN Bleeding Diphenhydramine HCl 25 mg 09/17/24 08:21 Diphenhydramine 50 Mg/Ml Vial IV Q10M PRN Pruritis FENT 2MCG/ML BUPIV 0.125% EPI 200 mcg in 100 mls @ 6 mls/hr 09/17/24 08:30 Fentanyl/Bupiv/Ns 2mcg/Ml - 0.125% EPIDURAL CONT TIMOTHY Lactated Ringer's 1,000 mls @ 100 mls/hr 09/17/24 08:30 Lactated Ringers IV 09/17/24 18:29 CONT TIMOTHY Oxytocin/Lactated Ringer's 30 unit in 500 mls @ 200 mls/hr 09/17/24 08:26 Oxytocin Premix IV CONT PRN Bleeding Protocol Tranexamic Acid 1,000 mg/ 100 mls @ 600 mls/hr 09/17/24 08:26 Sodium Chloride IV NOW PRN Bleeding Lidocaine HCl 20 ml 09/17/24 08:26 Lidocaine 1% 20 Ml INJ INTRA-OP PRN Post Delivery Methylergonovine Maleate 0.2 mg 09/17/24 08:26 Methylergonovine 0.2 Mg Tablet PO Q6HR PRN Heavy Bleeding Methylergonovine Maleate 0.2 mg 09/17/24 08:26 Methylergonovine 0.2 Mg/Ml Vial IM NOW PRN Bleeding Mineral Oil 30 ml 09/17/24 08:26 Mineral Oil 30 Ml Udc TOP PRN PRN Version Misoprostol 800 mcg 09/17/24 08:26 Misoprostol 200 Mcg Tablet TN NOW PRN Bleeding Misoprostol 400 mcg 09/17/24 08:26 Misoprostol 200 Mcg Tablet SL NOW PRN Bleeding Naloxone HCl 0.2 mg 09/17/24 08:26 Naloxone 0.4 Mg/Ml Vial IV Q2MIN PRN Opiate Reversal Oxytocin 10 unit 09/17/24 08:26 Oxytocin 10 Unit/Ml Vial IM NOW PRN Bleeding Allergies: Allergies Allergy/AdvReac Type Severity Reaction Status Date / Time Sulfa (Sulfonamide AdvReac Intermediate As a Verified 09/14/24 10:33 Antibiotics) child, in [SULFA (SULFONAMIDE eyedrops, ANTIBIOTICS)] redness/rash Procedure Insertion date: 09/17/24 Insertion time: 08:43 Prep/Local: betadine x3 and 1% lidocaine Interspace: L3-4 Patient position: sitting Needle: 18 gauge [employer]aa [employer] (CSE: 27g Pencan through Hust[place], clear CSF, 1mL 0.25% bupiv MPF) Loss of resistance with: saline CEZAR at (cm): 4 Catheter placed at SKIN (cm): 10 Catheter in SPACE (cm): 6 Insertion: No CSF, No Blood, No Paresthesia with insertion, No Paresthesia with injection and No Test dose reaction Initial Medications TEST DOSE time: 08:45 TEST DOSE: 1.5% lidocaine with epinephrine 1:200k (mL): 3 BOLUS DOSE time: 08:51 BOLUS DOSE (mL): 4 BOLUS DOSE med: other (infusate) Infusion INFUSION: 0.125% bupivacaine and with fentanyl 2 mcg/mL Initial rate (mL/hr): 8 Subsequent interventions: Post-procedure Anesthesia date START: 09/17/24 Anesthesia time START: 08:30 Anesthesia date END: 09/17/24 Anesthesia time END: 12:50 Post-procedure Anesthesia Assessment: Yes CV function: HR/BP stable, Yes Resp function: RR/sat/airway adequate, Yes Post-op hydration adequate, Yes Pain control adequate, Yes Nausea & vomiting absent, Yes Temperature > 36 C, Yes Mental status appropriate and No Anesthesia complications
[2024-09-17 10:02] VITALS: BP 125/77
[2024-09-17] MEDS: DERMOPLAST SPRAY 20% 60 ML 1 SPRAY TOP (13:00)
[2024-09-17] MEDS: WITCH HAZEL/GLYCERIN PADS 1 EACH TOP (13:00)
--- NOTE | 2024-09-17 13:10 | PM.OBPRVD ---
Labor & Delivery Delivery date: 09/17/24 Intrapartal Events: None Cervical ripening method: none Induction method: none Delivery monitor: external FHT and external uterine Route of delivery: Episiotomy description: None L&D Laceration Description: Perineal - 1st Degree Delivery repair: chromic Estimated blood loss (mL): 150 Anesthesia Type: Epidural Complications: None Narrative: Following a brief 2nd stage, the patient delivered spontaneously over an intact perineum of viable and vigorous female infant. No cord entanglement was noted and there was no shoulder dystocia. Skin to skin contact was initiated immediately following and delayed cord clamping performed. Once the umbilical cord was doubly clamped and cut, a cord blood sample was obtained for routine studies. The placenta was then delivered with gentle cord traction applied to the cord with suprapubic countertraction. Intravenous Pitocin was initiated immediately upon delivery of the placenta and the post delivery blood losses were minimal. Inspection of the placenta showed to be intact with a central cord insertion and a three-vessel cord. Inspection of the perineum showed a superficial first-degree perineal laceration which required closure with 3-0 chromic suture. Sponge, suture, and needle counts were correct at the end of the delivery process which was well tolerated by both mother and [place] Baby 1: gender: Female Presentation: vertex Position: Left Occiput Anterior Placenta delivery description: Spontaneous Cord Vessel Description: 3 Vessels score (1 min): 9 score (5 min): 9 weight: 8 lb 4.277 oz Plan for aftercare: Routine care
[2024-09-17] MEDS: IBUPROFEN 600 MG TABLET PO (20:03)
[2024-09-18] MEDS: IBUPROFEN 600 MG TABLET PO (04:30)
[2024-09-18 07:36] LABS: Add Manual Diff / Slide Review NO; Basophils Absolute Auto 100 /uL (0-100); Basophils Percent Auto 0.5 % (0-2); Eosinophils Absolute Auto 100 /uL (0-450); Hematocrit 29.2 % (36-46); Hemoglobin 9.4 g/dL (12.0-16.0); Lymphocytes Absolute Auto 1900 /uL (1100-4500); Lymphocytes Percent Auto 15.4 % (25-40); Mean Corpuscular HGB Conc 32.1 % (30-36); Mean Corpuscular Hemoglobin 24.7 PG (26-34); Mean Corpuscular Volume 76.8 fL (80-100); Monocytes Absolute Auto 900 /uL (0-900); Monocytes Percent Auto 7.1 % (3-14); Neutrophils Absolute Auto 9600 /uL (1500-7000); Platelet Count 258 X10^3/uL (150-400); Red Cell Distribution Width 17.7 % (11.6-14.8); White Blood Cell Count 12.7 X10^3/uL (4.5-11.0)
[2024-09-18 09:06] VITALS: BP 125/77; PULSE 102; TEMP 36
--- NOTE | 2024-09-18 09:24 | PM.OBDS.1 ---
Discharge Providers Provider Date of admission: 09/17/24 08:02 Discharge Date: 09/18/24 Primary care physician: ABDIFATAH Arango Consults: 09/17/24 08:27 Consult to Anesthesiology Urgent Comment: Consulting Provider: Murali Ramirez Reason for consultation: Epidural 09/18/24 13:08 Consult to Safety Investigator/Cause Analyst Routine Comment: Discharge provider: Lewis Spears MD Summary Hospital Course Date Patient Seen: 09/18/24 Time Patient Seen: 09:24 Diagnoses: Intrauterine gestation, 40+ 5 weeks, delivered by spontaneous vaginal GBS negative status Hospital Course: Candy presented in labor on the morning of 09/17/2024 and later that day, following placement of a continuous lumbar epidural, delivered a viable female with Apgars of 9/9 and a weight of 3750 g (8 lb 4.3 oz). Following delivery both mother and baby have done extremely well with the mother experiencing prompt return of bowel and bladder function, she is ambulating independently, tolerating regular diet, and her pain is well controlled with oral pain medications. She will be discharged at this time to home in an afebrile normotensive condition after counseling regarding precautionary symptoms, limitations of activity, medications, and plans for follow-up which will be in 6 weeks. Medications at discharge will include resumption of all preadmission medications and she will use vohv-eri-klfnmpy medications for pain relief. Peripartum Data Infant Delivery Method: Natural Vaginal Laceration Description: Perineal - 1st Degree Episiotomy description: None Procedures: Continuous lumbar epidural Spontaneous vaginal with repair of first-degree perineal laceration complications: none [place] 1: Gender: Female Status at Discharge Cognitive/behavioral status at discharge: oriented Functional status at discharge: independent ambulation Overall status at discharge: patient is progressing back to baseline Time Spent with Patient Time attestation: Total time spent providing and/or coordinating discharge services: Time spent: Less than 30 minutes Objective Labs 09/18/24 07:16 Labs: Laboratory Results - last 24 hr 09/18/24 07:16 WBC 12.7 H RBC 3.80 L Hgb 9.4 L Hct 29.2 L MCV 76.8 L MCH 24.7 L MCHC 32.1 RDW 17.7 H Plt Count 258 Neut % (Auto) 76.0 H Lymph % (Auto) 15.4 L [place] % (Auto) 7.1 Eos % (Auto) 1.0 L Baso % (Auto) 0.5 Neut # (Auto) 9600 H Lymph # (Auto) 1900 [place] # (Auto) 900 Eos # (Auto) 100 Baso # (Auto) 100 Exam Vital Signs (past 8 hours): - 09/18/24 09:06 Temperature 96.8 F L Pulse Rate 102 H Blood Pressure 125/77 Const General: cooperative and comfortable Nutritional Appearance: average body habitus Orientation: alert and oriented x3 HENMT Head: normal to inspection, atraumatic and abrasion Ears: hearing grossly normal bilaterally Face and sinus: face symmetric Eyes General: appearance normal, both eyes and all related structures Conjunctivae: conjunctivae normal Sclera: sclerae normal EOM: EOM intact bilaterally Neck Neck: normal visual inspection Resp Effort & Inspection: normal respiratory effort and able to speak in complete sentences GI Inspection: normal to inspection Palpation: soft and no hepatosplenomegaly External Female Exam: other (No significant bleeding noted) Extrem General: no calf tenderness Psych Appearance: grossly normal Mental Status: mental status grossly normal Speech and Movement: speech and movement normal Mood: congruent mood Affect: normal affect Attitude: cooperative Thought Process: normal Thought Content: normal Judgment: judgment good Discharge Plan Discharge Plan Patient Disposition: Home Provider Discharge Comment: Please review the written instructions you received when you were discharged from the hospital. Your follow-up appointment will be scheduled for 6 weeks after delivery and I look forward to seeing you then. If however in the meanwhile you have any questions, concerns, or other issues, please contact me either by the office phone at [phone], or via the patient portal. Discharge orders & Medications Prescriptions: Continued prenat.vits,leslee,qlc-zeak-qrsmb Tablet 1 tab PO DAILY ferrous sulfate 325 mg (65 mg iron) tablet,delayed release (DR/EC) 325 mg PO DAILY Qty: 60 3RF Follow up/Referrals: Lewis Spears MD [Physician] - 10/27/24 10:00 am (Please follow up w/ Dr. Spears for your 6 week follow up appointmet on Friday10/27/24 @10:00am. Please check in at 9:45am!) Yvonne Pederson FNP-C [Primary Care Provider] - Discharge Health Status Multidrug resistant organism: No MDRO Diet/Activity/Treatments Diet: Diet as Tolerated Activity: As tolerated Other treatments: Qexd-yrh-jyccdfk Tylenol and/or ibuprofen may be used as needed for pain relief. Juax-vld-alulfhq stool softeners and/or MiraLax may be used as needed for constipation. Skin/Wound/Dressing Care Report to your healthcare provider any signs of infection, such as:: chills, fever, increased pain, unusual drainage and unusual redness Dressing: N/A Visit Report/Discharge Packet Instructions: DI for Labor and Delivery, Vaginal , DI for and Nipple Soreness Discharge Data Primary Care Provider: Yvonne Pederson
== END 2024-09-18 10:45 | disposition home or self-care (01) | DRG 560 ==
PROVIDERS: Admitting Provider Obstetrics & Gynecology; PCP Nurse Practitioner Family; Referring Provider Obstetrics & Gynecology; Visit Provider Obstetrics & Gynecology
DX: O70.0 First degree perineal laceration during delivery (principal); Z3A.40 40 weeks gestation of pregnancy; Z67.20 Type B blood, Rh positive; Z37.0 Single live birth
CPT/HCPCS: 36415; 59050; 85025; 86850; 86900; 86901; G0379

== ENCOUNTER 2025-11-17 18:59 | Emergency (ER) | payer OTHER, SELFPAY ==
--- OUTSIDE RECORDS SUMMARY | 2025-11-17 19:02 | XMS_ITS | Clinical Summary ---
Author Organization [facility] Address [address] [place] [address] Care Team Providers Care Debrander Name Role Phone Pcp, None Selected Primary Care Provider Unavail able Allergies No known active allergies Medications norethindrone-e. estradiol-iron (JUNE FE 12/20) 1 mg-20 mcg (21)/75 mg (7) per tablet Take 1 tablet by mouth daily Active SUMAtriptan (IMITREX) 50 mg tablet 0 04/14/2019 Active metoclopramide (REGLAN) 5 mg tablet 0 04/14/2019 Active Active Problems No known active problems Social History Tobacco Use Types Packs/Day Years Used Date Smoking Tobacco: Never Smokeless Tobacco: Never Comments Unknown Sex and Gender Information Value Date Recorded Sex Assigned at Not on file Legal Sex Female 7:59 PM PDT Gender Identity Not on file Sexual Orientation Not on file Last Filed Vital Signs Vital Sign Reading Time Taken Comments Blood Pressure 135/86 05/13/2019 6:49 PM PDT Pulse 69 05/13/2019 6:49 PM PDT Temperature 36.6 C (97.8 F) 05/13/2019 6:49 PM PDT Respiratory Rate 16 05/13/2019 6:49 PM PDT Oxygen Saturation 99% 05/13/2019 6:49 PM PDT Inhaled Oxygen Concentration - - Weight 68 kg (150 lb) 05/13/2019 6:49 PM PDT Height 157.5 cm (5' 2) 05/13/2019 6:49 PM PDT Body Mass Index 27.44 05/13/2019 6:49 PM PDT Plan of Treatment Health Maintenance Due Date Last Done Comments Hepatitis B Vaccines (2 of 3 - 3-dose series) 03/22/1998 02/22/1998 IPV Vaccines (2 of 3 - 4-dos e series) 04/16/1999 03/19/1999 Depression Screening (PHQ-2) 2006 Varicella Vaccines (1 of 2 - 13+ 2-dose series) 2007 DTaP,Tdap,and Td Vaccines (3 - Td or Tdap) 10/15/2016 10/15/2006, 03/19/1999 Cervical Cancer Screening Combined Topic 2024 Cervical Cancer-Pap screening 2024 HPV/Cotest 2024 COVID-19 Vaccine (1 - 2024-2 6 season) 2025 Influenza Vaccine (#1) 2025 RSV Patients Over 60 years O R qualifying ( Patients) (1 - 1-dose 75+ series) 2069 MMR Vaccines Completed 03/19/1999 Meningococcal Vaccine Discontinued 10/15/2006 HPV Vaccines Completed 08/02/2010, 06/24/2008 Pneumococcal Combined Age 0-49 Aged Out No longer eligible based on patient's age to complete this topic Hepatitis A Vaccines Aged Out No long er eligible based on patient's age to complete this topic Insurance [facility] Care Teams Debrander Relationship Specialty Start Date End Date Pcp, None Selected PCP - General 03/17/25
[2025-11-17 19:15] VITALS: BP 125/75; PULSE 67; RESP 16; TEMP 36.6; O2SAT 100; BMI 24.3
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
[2025-11-17] MEDS: LACTATED RINGERS 1,000 ML 1000 ML IV (19:36)
[2025-11-17] MEDS: diphenhydrAMINE 50 MG/ML VIAL IV (19:40)
[2025-11-17] MEDS: KETOROLAC 30 MG/ML VIAL 15 MG IV (19:41)
[2025-11-17] MEDS: droPERidol 2.5 MG/ML VIAL IV (19:42)
[2025-11-17 20:59] VITALS: PULSE 58; O2SAT 100
[2025-11-17 21:02] VITALS: BP 113/63; PULSE 58; PULSE 59; RESP 18; O2SAT 98; O2SAT 99
[2025-11-17 21:30] VITALS: PULSE 53; O2SAT 99
[2025-11-17 22:00] VITALS: PULSE 58; O2SAT 99
[2025-11-17 22:01] VITALS: BP 115/67; PULSE 60; O2SAT 99
== END 2025-11-17 22:10 | disposition home or self-care (01) ==
PROVIDERS: Emergency Provider Family Medicine
DX: G43.909 Migraine, unspecified, not intractable, without status migrainosus (principal)
CPT/HCPCS: 36415; 96365; 96375; 99284; J1100; J1200; J1790; J1885; J7120